=== PATIENT | female | born 1990 | race Caucasian/White ===

== ENCOUNTER 2021-03-12 07:10 | Inpatient (IN) ==
[2021-03-12] MEDS ORDERED: miSOPROStoL 50 MCG TAB PO ONE (09:34)
[2021-03-12] MEDS ORDERED: OXYTOCIN 30 UNITS/500 ML BAG IV PRN (09:34)
--- NOTE | 2021-03-12 09:42 | Obstetrical Progress Note ---
Date of Service March 12, 2021 Assessment & Plan (1) Prolonged gestation: Plan: Labor induction for prolonged gestation Met pt and spouse Reviewed labor induction plan and anticipation Reviewed PNC with pt FHR; CAT1 Ctx Minimal VE ; /-3 EFW By renetta; karely Cytotec #1 ordered Admission and Anticipated Discharge Date Admission Date: March 12, 2021 Results & Data ([facility]) Vital Signs (Past 12 Hours) Vital Signs Temp Pulse Resp BP 03/12/21 07:28 36.8 C 18 03/12/21 07:26 86 122/72
[2021-03-12 10:01] LABS: Hematocrit (blood only) 36.5 % (37-47); Hemoglobin 12.4 g/dL (12.0-16.0); Mean Corpuscular Hemoglobin 29.1 pg (25-34); Mean Corpuscular Volume 85.7 fL (80-100); Mean Platelet Volume 10.9 fL (7.4-10.4); Platelet Count 233 K/uL (130-400); RDW Coefficient of Variation 13.4 % (11.5-14.5); Red Blood Count 4.26 M/uL (4.2-5.4)
[2021-03-12] MEDS ORDERED: DINOPROSTONE 10 MG INSERT PV ONE (19:15)
--- NOTE | 2021-03-12 20:03 | Labor Progress Brief Note ---
Date of Service March 12, 2021 Assessment & Plan (1) Prolonged gestation: Plan: Pt doing well FHR; CAT1 Ctx mild and irregular VE /-3 Received one dose Cytotec Cervidil placed Admission and Anticipated Discharge Date Admission Date: March 12, 2021 Results & Data ([facility]) Vital Signs (Past 12 Hours) Vital Signs Temp Pulse Resp BP 03/12/21 19:04 36.7 C 70 18 117/61 03/12/21 19:03 36.7 C 18 03/12/21 15:12 36.8 C 68 20 112/63 03/12/21 12:38 36.6 C 18 03/12/21 12:30 63 102/58 L 03/12/21 11:39 72 104/58 L 03/12/21 11:38 37.2 C 18
[2021-03-13] MEDS ORDERED: DINOPROSTONE 10 MG INSERT PV ONE (09:06)
[2021-03-13] MEDS ORDERED: BUTORPHANOL TARTRATE 1 MG/ML VIAL IV PRN (09:09)
[2021-03-13] MEDS ORDERED: FLUCONAZOLE 50 MG TAB PO ONE (09:09)
--- NOTE | 2021-03-13 09:09 | Obstetrical Progress Note ---
Date of Service March 13, 2021 Assessment & Plan Admission and Anticipated Discharge Date Admission Date: March 12, 2021 Subjective Patient is seen and examined Reviewed her records and confirmed with her No medical problems No smoking/ alcohol or D use No h/o genital STD'S/ HSV GBS negative IOL for postdates since yesterday am, 1 dose of PO Cytotec and 1 cervidil ( removed at 07:45 am) Feels irregular mild contractions, not painful, able to sleep all night No LOF/VB +FM's FHR categ I VE; 1/ 40%/ -3, posterior, [place]ff[place] 3 Candidal d/c Discussed the findings and unfavorable cervix She agrees with cervical ripening with Cervidil Diflucan once Continue to monitor closely Results & Data ([facility]) Vital Signs (Past 12 Hours) Vital Signs Temp Pulse Resp BP 03/13/21 07:10 36.8 C 20 03/13/21 07:09 77 119/70 03/13/21 04:31 36.7 C 59 L 16 125/71 03/12/21 23:29 36.7 C 18 03/12/21 23:28 36.7 C 71 18 122/63 03/12/21 21:48 18 03/12/21 21:30 18
[2021-03-13] MEDS ORDERED: ACETAMINOPHEN 325 MG TAB PO PRN (09:10)
[2021-03-13] MEDS ORDERED: ONDANSETRON INJ 2 MG/ML 2 ML VIAL IV PRN (09:10)
[2021-03-13] MEDS: LACTATED RINGER'S 1,000 ML IV PRN ×2 (09:28→10:28)
--- NOTE | 2021-03-13 16:13 | Obstetrical Progress Note ---
Date of Service March 13, 2021 Assessment & Plan Admission and Anticipated Discharge Date Admission Date: March 12, 2021 Subjective Patient is reevaluated She feels about the same, mild irregular ctxs q 5-10 min No LOF/VB +FM's FHR categ I [place]: ctxs q 2-5 min, does not feel them all Discussed possible plan per VE this evening Encouraged to ambulate Continue to monitor Results & Data ([facility]) Vital Signs (Past 12 Hours) Vital Signs Temp Pulse Resp BP 03/13/21 15:45 36.8 C 18 03/13/21 15:35 70 117/75 03/13/21 11:30 37.0 C 03/13/21 11:23 75 117/76 03/13/21 07:10 36.8 C 20 03/13/21 07:09 77 119/70 03/13/21 04:31 36.7 C 59 L 16 125/71
--- NOTE | 2021-03-13 23:32 | Obstetrical Progress Note ---
Date of Service March 13, 2021 Assessment & Plan Admission and Anticipated Discharge Date Admission Date: March 12, 2021 Subjective Patient is reevaluated. Cervidil came out, she ate dinner and took a shower. She denies pain but still feeling mild irregular contractions. Vital signs stable afebrile, heart rate reassuring, Cervix is 1 to 2 cm dilated, 40% effaced, head at -3 station. Discussed next plan as fully bulb placement with low-dose Pitocin and patient agreed. Speculum was placed in the patient's vagina, cervix was visualized and cleaned with Betadine solution. Valencia catheter was inserted through the cervix and its balloon was inflated with 40 mL of sterile water and applied to the cervix with gentle traction. Continue to monitor closely. Results & Data ([facility] [place]) Vital Signs (Past 12 Hours) Vital Signs Temp Pulse Resp BP 03/13/21 19:40 77 112/59 L 03/13/21 19:15 36.8 C 20 03/13/21 18:27 68 120/72 03/13/21 15:45 36.8 C 18 03/13/21 15:35 70 117/75
[2021-03-14] MEDS: OXYTOCIN 30 UNITS/500 ML BAG IV PRN (00:01)
[2021-03-14] MEDS: LACTATED RINGER'S 1,000 ML IV PRN (06:15)
--- NOTE | 2021-03-14 07:13 | Anesthesiology Consultation ---
Date of Service March 14, 2021 Assessment & Plan ASA ASA2 Proposed Anesthesia Anesthesia Type: Labor Epidural Risk / Benefits Reviewed With: PT / POA / Parent / Guardian, Accepts Plan and Informed Consent Obtained History Height/Weight Height: 5 ft 4 in Weight: 87.09 kg Allergies Allergy/AdvReac Type Severity Reaction Status Date / Time amoxicillin Allergy Rash Verified 03/12/21 07:35 Medications Home Medications Medication Instructions Recorded Confirmed Last Taken iron,carbonyl 65 mg-vitamin C 125 1 tab PO BID 03/12/21 03/12/21 03/10/21 21:00 mg tablet,delayed release (Vitron-C) [id number] 1 mg 1 tab PO DAILY 03/12/21 03/12/21 03/10/21 21:00 tablet Active Medications Generic Name Dose Route Start Last Admin Trade Name Freq PRN Reason Stop Dose Admin Butorphanol Tartrate 1 mg 03/13/21 09:09 03/14/21 00:05 Butorphanol Tartrate 1 Mg/Ml Vial IV 04/12/21 09:08 1 mg Q3HWA PRN Administration Pain Lactated Ringer's 1,000 mls @ 125 mls/hr 03/12/21 09:34 03/14/21 06:15 Lr IV 03/14/21 09:33 125 mls/hr .Q8H PRN Administration L&D Protocol Protocol Oxytocin 30 units in 500 mls @ 3 mls/hr 03/13/21 23:34 03/14/21 06:15 Pitocin IV 03/15/21 23:33 0.18 units/hr .Q24H PRN 3 mls/hr Labor Induction/Augmentation Titration Protocol 0.18 UNITS/HR Past Medical History Medical History (Updated 03/12/21 @ 09:40 by Felix Patel MD) No significant past medical history Exercise / Class Metabolic Activity II 4-5 Yardwork/Stairs/Walk up hill Past Family History Family History (Updated 03/12/21 @ 07:32 by Vashti Martinez RN) Mother Heart disease Grandfather (Maternal) Diabetes Grandfather (Paternal) Diabetes Grandmother (Paternal) Diabetes Grandmother (Maternal) Diabetes Breast cancer Past Surgical History Surgical History (Updated 03/12/21 @ 07:30 by Vashti Martinez RN) No significant past surgical history Past Anesthesia History No Hx of Anesthesia Complications and No Family Hx of Anesthesia Complications History of PONV No Hx of PONV and No Hx of Motion Sickness Social History Smoking Status: Never smoker Hx Alcohol Use: No Hx Substance Use: No Review of Systems denies fever/cough/ colds/ chest pain/ SOB/ IBRAHIMA denies IBRAHIMA Physical Exam Vital Signs Last Vital Signs Temp 36.8 C 03/13/21 23:32 Pulse 71 03/14/21 07:06 Resp 18 03/14/21 06:30 BP 120/69 03/14/21 07:06 ENMT Mouth: no TMJ abnormality and no dentition abnormality Thyromental Distance: > or= 3.5 Finger Breadths Mallampati Class: II Neck neck extension not limited Respiratory normal respiratory effort; no respiratory distress Auscultation: lungs clear to auscultation bilaterally Cardiovascular Rate/Rhythm: regular rate and regular rhythm Neurologic moves all extremities Psychiatric Orientation: alert and oriented x 3 Testing Laboratory Results 03/12/21 09:50
--- NOTE | 2021-03-14 09:48 | Labor Progress Brief Note ---
Date of Service March 14, 2021 Subjective doing well 3rd day of induction pain level reported as 4 Valencia fell out of cervix Assessment & Plan Admission and Anticipated Discharge Date Admission Date: March 12, 2021 Physical Exam Genitourinary: OB Exam Abdomen: + heart tones and + vertex Manual OB Exam: + cervical dilation 3 cm, + cervical effacement 60%, + station high and + amniotic fluid clear and bloody OB Exam Monitor Tracing: + external FHT monitor used, + external uterine monitor used, + category I and + normal FHT variability AROM with blood tinged fluid Results & Data ([facility]) Vital Signs (Past 12 Hours) Vital Signs Temp Pulse Resp BP 03/14/21 09:36 70 110/67 03/14/21 09:06 65 110/66 03/14/21 08:36 67 111/71 03/14/21 08:07 71 113/67 03/14/21 07:36 75 116/67 03/14/21 07:06 71 120/69 03/14/21 07:00 36.8 C 20 03/14/21 06:36 74 112/70 03/14/21 06:30 18 03/14/21 06:06 73 110/68 03/14/21 05:36 62 115/61 03/14/21 05:06 68 108/64 03/14/21 04:36 74 109/69 03/14/21 04:05 76 111/73 03/13/21 23:32 36.8 C 77 18 123/71
[2021-03-14] MEDS: LACTATED RINGER'S 1,000 ML IV SCH ×3 (14:10→22:51)
--- NOTE | 2021-03-14 14:26 | Labor Progress Brief Note ---
Date of Service March 14, 2021 Assessment & Plan Admission and Anticipated Discharge Date Admission Date: March 12, 2021 Physical Exam Genitourinary: Manual OB Exam: + cervical dilation 4 cm, + cervical effacement 70% and 80% and + station -2 OB Exam Monitor Tracing: + external FHT monitor used, + external uterine monitor used, + category I and + normal FHT variability Results & Data ([facility]) Vital Signs (Past 12 Hours) Vital Signs Temp Pulse Resp BP 03/14/21 14:06 68 115/68 03/14/21 13:36 69 108/63 03/14/21 13:06 64 111/63 03/14/21 12:36 75 111/68 03/14/21 12:30 36.9 C 03/14/21 11:59 18 03/14/21 11:36 78 111/63 03/14/21 11:17 69 111/72 03/14/21 10:37 72 111/73 03/14/21 10:30 36.8 C 03/14/21 10:06 71 113/70 03/14/21 09:36 70 110/67 03/14/21 09:06 65 110/66 03/14/21 08:36 67 111/71 03/14/21 08:07 71 113/67 03/14/21 07:36 75 116/67 03/14/21 07:06 71 120/69 03/14/21 07:00 36.8 C 20 03/14/21 06:36 74 112/70 03/14/21 06:30 18 03/14/21 06:06 73 110/68 03/14/21 05:36 62 115/61 03/14/21 05:06 68 108/64 03/14/21 04:36 74 109/69 03/14/21 04:05 76 111/73
--- NOTE | 2021-03-14 19:41 | Labor Progress Brief Note ---
Date of Service March 14, 2021 Assessment & Plan Admission and Anticipated Discharge Date Admission Date: March 12, 2021 Physical Exam Genitourinary: Manual OB Exam: + cervical dilation 5 cm, + cervical effacement 80% and + station -2 OB Exam Monitor Tracing: + external FHT monitor used, + external uterine monitor used, + category I and + normal FHT variability Results & Data ([facility]) Vital Signs (Past 12 Hours) Vital Signs Temp Pulse Resp BP 03/14/21 19:36 85 110/67 03/14/21 19:06 82 116/69 03/14/21 19:05 36.8 C 20 03/14/21 18:36 67 122/78 03/14/21 18:06 76 126/74 03/14/21 17:36 66 116/72 03/14/21 17:06 71 117/77 03/14/21 16:59 36.8 C 18 03/14/21 16:36 74 113/69 03/14/21 16:06 67 115/64 03/14/21 15:36 73 113/68 03/14/21 15:07 75 111/66 03/14/21 15:01 36.7 C 18 03/14/21 14:36 71 104/67 03/14/21 14:06 68 115/68 03/14/21 13:36 69 108/63 03/14/21 13:06 64 111/63 03/14/21 12:36 75 111/68 03/14/21 12:30 36.9 C 03/14/21 11:59 18 03/14/21 11:36 78 111/63 03/14/21 11:17 69 111/72 03/14/21 10:37 72 111/73 03/14/21 10:30 36.8 C 03/14/21 10:06 71 113/70 03/14/21 09:36 70 110/67 03/14/21 09:06 65 110/66 03/14/21 08:36 67 111/71 03/14/21 08:07 71 113/67
[2021-03-14] MEDS ORDERED: ePHEDrine sulfate 50 MG/ML AMP ONE (22:07)
[2021-03-14] MEDS ORDERED: fentaNYL 2MCG/ML ROPIVACAINE 1.25MG/ML 100 ML BAG EPI ONE (22:08)
[2021-03-14] MEDS ORDERED: BUPIVACAINE 0.25% 30 ML VIAL ONE (22:08)
[2021-03-14] MEDS ORDERED: fentaNYL citrate 100 MCG/2 ML VIAL ONE (22:08)
[2021-03-14] MEDS ORDERED: SODIUM CHLORIDE 0.9% INJ 10 ML VIAL ONE (22:08)
[2021-03-14] MEDS ORDERED: fentaNYL 2MCG/ML ROPIVACAINE 1.25MG/ML 100 ML BAG EPI PRN (22:18)
[2021-03-14] MEDS ORDERED: diphenhydrAMINE 50 MG/ML VIAL IV PRN (22:18)
[2021-03-14] MEDS ORDERED: ePHEDrine sulfate 50 MG/ML AMP IV PRN (22:18)
[2021-03-14] MEDS ORDERED: NALOXONE HCL 1 MG in SODIUM CHLORIDE 0.9% 1000ML 1,000 ML IV PRN (22:18)
[2021-03-14] MEDS ORDERED: NALBUPHINE HCL INJ 10 MG/ML AMP IV PRN (22:18)
[2021-03-14] MEDS ORDERED: NALOXONE HCL 0.4 MG/1 ML VIAL/CARP IV PRN (22:18)
--- NOTE | 2021-03-14 22:18 | Anesthesiology Consultation ---
Date of Service March 14, 2021 Assessment & Plan (1) Encounter for pre-operative examination: Chart Review Chart Review: Acceptable Risk for Surgery and Patient NOT seen in Pre Admission Testing Consults Requested none History Height/Weight Height: 5 ft 4 in Weight: 87.09 kg Allergies Allergy/AdvReac Type Severity Reaction Status Date / Time amoxicillin Allergy Rash Verified 03/12/21 07:35 Medications Home Medications Medication Instructions Recorded Confirmed Last Taken iron,carbonyl 65 mg-vitamin C 125 1 tab PO BID 03/12/21 03/12/21 03/10/21 21:00 mg tablet,delayed release (Vitron-C) [id number] 1 mg 1 tab PO DAILY 03/12/21 03/12/21 03/10/21 21:00 tablet Active Medications Generic Name Dose Route Start Last Admin Trade Name Freq PRN Reason Stop Dose Admin Butorphanol Tartrate 1 mg 03/13/21 09:09 03/14/21 00:05 Butorphanol Tartrate 1 Mg/Ml Vial IV 04/12/21 09:08 1 mg Q3HWA PRN Administration Pain Oxytocin 30 units in 500 mls @ 15 mls/hr 03/13/21 23:34 03/14/21 22:15 Pitocin IV 03/15/21 23:33 0.96 units/hr .Q24H PRN 16 mls/hr Labor Induction/Augmentation Titration Protocol 0.9 UNITS/HR Lactated Ringer's 1,000 mls @ 125 mls/hr 03/14/21 10:00 03/14/21 22:05 Lr IV 04/13/21 09:59 999 mls/hr .Q8H ALYCE Infusion Past Medical History Medical History No significant past medical history Past Family History Family History Mother Heart disease Grandfather (Maternal) Diabetes Grandfather (Paternal) Diabetes Grandmother (Paternal) Diabetes Grandmother (Maternal) Diabetes Breast cancer Past Surgical History Surgical History No significant past surgical history Social History Smoking Status: Never smoker Hx Alcohol Use: No Hx Substance Use: No Physical Exam Vital Signs Last Vital Signs Temp 98.2 F 03/14/21 22:02 Pulse 75 03/14/21 21:37 Resp 20 03/14/21 19:05 BP 114/69 03/14/21 21:37 Testing Laboratory Results 03/12/21 09:50
[2021-03-15] MEDS: LACTATED RINGER'S 1,000 ML IV SCH ×2 (02:52→06:01)
[2021-03-15] MEDS: OXYTOCIN 30 UNITS/500 ML BAG IV PRN (03:30)
[2021-03-15 07:34] LABS: Basophils # (auto) 0.01 K/uL (0-0.2); Hematocrit (blood only) 36.8 % (37-47); Hemoglobin 12.6 g/dL (12.0-16.0); Immature Granulocytes # (auto) 0.04 K/uL (0.00-0.02); Immature Granulocytes % (auto) 0.2 %; Lymphocytes # (auto) 0.69 K/uL (1.2-3.4); Lymphocytes % (auto) 3.3 %; Mean Corpuscular Hgb Conc 34.2 g/dL (32-36); Mean Corpuscular Volume 84.6 fL (80-100); Mean Platelet Volume 10.8 fL (7.4-10.4); Monocytes # (auto) 1.18 K/uL (0.11-0.59); Monocytes % (auto) 5.7 %; Neutrophils # (auto) 18.81 K/uL (1.4-6.5); Neutrophils % (auto) 90.8 %; Platelet Count 202 K/uL (130-400); RDW Coefficient of Variation 13.5 % (11.5-14.5); RDW Standard Deviation 41.9 fL (36.4-46.3); Red Blood Count 4.35 M/uL (4.2-5.4); White Blood Count 20.73 K/uL (4.8-10.8)
[2021-03-15] MEDS ORDERED: LACTATED RINGER'S 1,000 ML IV SCH ×2 (07:45→08:45)
--- NOTE | 2021-03-15 07:45 | Obstetrical Progress Note ---
Date of Service March 15, 2021 Assessment & Plan Admission and Anticipated Discharge Date Admission Date: March 12, 2021 Subjective Patient is seen and examined I got sign out from Dr Flores who AROM'ed at 09:45 am yesterday morning and increased pitocin per protocol. Per his exam last night and her nurse at 2 am cervix was 5 cm/ 80%/ -2 Patient c/o back pain, no pain from contractions, received epidural yesterday around 11 am FHR had been categ I but now tachycardic 165-170's, no decels, Catet II strip VE; swollen labia BL, cervix 4 cm/ 60%, swollen, head coned and -2 station Discussed the findings as arrest of dilatation at active stage of labor, tachycardia and recommended imminent delivery via Ceserean section Patient agrees Understands it is a major surgery with risks of bleeding, infection, injury to surrounding organs like bowels, bladder, ureters, increased risk of DVD/ PE, scarring, adhesion. She signed and informed consent Vagina was washed with betadine Will repeat labs, start preop AB's with Cefazolin and Azitromycin and proceed with Csection L&D team and peds aware. Results & Data ([facility]) Vital Signs (Past 12 Hours) Vital Signs Temp Pulse Resp BP Pulse Ox 03/15/21 07:34 97 H 98 03/15/21 07:32 96 H 134/68 03/15/21 07:29 103 H 99 03/15/21 07:24 104 H 97 03/15/21 07:22 103 H 92 03/15/21 07:19 105 H 97 03/15/21 07:16 98 H 127/75 03/15/21 07:14 90 95 03/15/21 07:13 91 H 93 03/15/21 07:09 92 H 96 03/15/21 07:04 111 H 99 03/15/21 07:02 111 H 140/78 03/15/21 07:00 37.2 C 20 03/15/21 06:59 102 H 18 96 03/15/21 06:54 110 H 97 03/15/21 06:49 110 H 100 03/15/21 06:46 91 H 113/63 03/15/21 06:44 96 H 99 03/15/21 06:39 97 H 98 03/15/21 06:34 86 99 03/15/21 06:32 83 123/71 03/15/21 06:30 18 03/15/21 06:29 89 97 03/15/21 06:24 80 97 03/15/21 06:19 83 97 03/15/21 06:17 76 123/70 03/15/21 06:14 77 98 03/15/21 06:09 81 97 03/15/21 06:04 75 99 03/15/21 06:01 83 120/63 03/15/21 06:00 18 03/15/21 05:59 86 98 03/15/21 05:54 77 98 03/15/21 05:49 79 99 03/15/21 05:46 80 118/68 03/15/21 05:44 80 97 03/15/21 05:39 81 97 03/15/21 05:34 89 96 03/15/21 05:31 81 122/70 03/15/21 05:30 18 03/15/21 05:29 75 95 03/15/21 05:24 82 97 03/15/21 05:19 101 H 96 03/15/21 05:16 105 H 121/73 03/15/21 05:14 107 H 95 03/15/21 05:13 101 H 94 03/15/21 05:09 118 H 97 03/15/21 05:04 97 H 97 03/15/21 05:01 71 125/68 03/15/21 05:00 37.2 C 18 03/15/21 04:59 76 97 03/15/21 04:54 73 96 03/15/21 04:49 74 97 03/15/21 04:46 71 118/68 03/15/21 04:44 69 97 03/15/21 04:39 71 97 03/15/21 04:37 77 92 03/15/21 04:34 73 97 03/15/21 04:31 75 126/70 03/15/21 04:30 16 03/15/21 04:29 73 98 03/15/21 04:24 75 98 03/15/21 04:19 90 97 03/15/21 04:16 87 123/68 03/15/21 04:14 85 98 03/15/21 04:09 92 H 98 03/15/21 04:08 96 H 94 03/15/21 04:04 70 96 03/15/21 04:02 75 118/66 03/15/21 04:00 18 03/15/21 03:59 74 97 03/15/21 03:54 74 96 03/15/21 03:49 74 95 03/15/21 03:47 76 120/67 03/15/21 03:44 72 95 03/15/21 03:39 72 95 03/15/21 03:34 73 95 03/15/21 03:32 81 122/67 03/15/21 03:30 18 03/15/21 03:29 76 96 03/15/21 03:26 74 94 03/15/21 03:24 78 96 03/15/21 03:20 75 94 03/15/21 03:19 83 93 03/15/21 03:16 72 118/67 03/15/21 03:14 79 94 03/15/21 03:09 76 94 03/15/21 03:08 75 94 03/15/21 03:04 75 96 03/15/21 03:01 74 120/68 03/15/21 03:00 16 03/15/21 02:59 74 96 03/15/21 02:54 77 96 03/15/21 02:49 75 96 03/15/21 02:47 71 123/70 03/15/21 02:44 71 97 03/15/21 02:39 72 97 03/15/21 02:34 81 99 03/15/21 02:31 75 126/74 03/15/21 02:29 81 99 03/15/21 02:24 72 99 03/15/21 02:19 74 99 03/15/21 02:16 82 117/74 03/15/21 02:14 82 100 03/15/21 02:10 37.1 C 03/15/21 02:09 89 99 03/15/21 02:04 66 97 03/15/21 02:02 74 119/69 03/15/21 02:00 18 03/15/21 01:59 72 98 03/15/21 01:54 62 96 03/15/21 01:49 64 95 03/15/21 01:46 65 116/65 03/15/21 01:44 67 95 03/15/21 01:39 66 95 03/15/21 01:34 66 95 03/15/21 01:32 64 114/63 94 03/15/21 01:30 18 03/15/21 01:29 66 95 03/15/21 01:26 68 94 03/15/21 01:24 64 95 03/15/21 01:20 66 94 03/15/21 01:19 67 95 03/15/21 01:17 70 114/66 03/15/21 01:14 64 95 03/15/21 01:12 63 94 03/15/21 01:09 66 95 03/15/21 01:04 62 95 03/15/21 01:01 61 109/61 03/15/21 01:00 16 03/15/21 00:59 64 95 03/15/21 00:54 68 94 03/15/21 00:52 67 93 03/15/21 00:49 65 95 03/15/21 00:47 66 111/63 03/15/21 00:46 66 94 03/15/21 00:44 68 96 03/15/21 00:39 70 96 03/15/21 00:37 36.5 C 03/15/21 00:34 87 95 03/15/21 00:31 70 89/54 L 03/15/21 00:30 18 03/15/21 00:29 67 96 03/15/21 00:24 73 96 03/15/21 00:19 71 96 03/15/21 00:16 71 87/51 L 03/15/21 00:14 71 96 03/15/21 00:09 73 95 03/15/21 00:04 70 95 03/15/21 00:02 72 93/50 L 03/15/21 00:00 18 03/14/21 23:59 74 96 03/14/21 23:54 77 97 03/14/21 23:49 72 96 03/14/21 23:47 70 91/52 L 03/14/21 23:44 69 96 03/14/21 23:39 76 97 03/14/21 23:34 70 96 03/14/21 23:31 68 96/52 L 03/14/21 23:30 18 03/14/21 23:29 73 96 03/14/21 23:24 78 97 03/14/21 23:19 74 97 03/14/21 23:16 68 93/51 L 03/14/21 23:15 18 03/14/21 23:14 84 97 03/14/21 23:10 74 20 100/57 L 03/14/21 23:09 74 97 03/14/21 23:05 75 18 96/55 L 03/14/21 23:04 81 98 03/14/21 23:00 37.0 C 76 18 99/56 L 03/14/21 22:59 77 98 03/14/21 22:55 18 03/14/21 22:54 76 97/56 L 97 03/14/21 22:52 80 100/57 L 03/14/21 22:50 87 18 99/53 L 03/14/21 22:49 75 101/53 L 98 03/14/21 22:45 18 03/14/21 22:44 102 H 119/70 98 03/14/21 22:42 78 121/72 03/14/21 22:40 78 18 121/75 03/14/21 22:39 88 98 03/14/21 22:37 83 121/74 03/14/21 22:34 78 98 03/14/21 22:29 89 98 03/14/21 22:24 75 99 03/14/21 22:19 87 99 03/14/21 22:02 36.8 C 03/14/21 21:37 75 114/69 03/14/21 20:36 73 125/71 03/14/21 20:34 36.7 C 03/14/21 20:06 75 104/57 L
[2021-03-15] MEDS ORDERED: CITRIC ACID/SODIUM CITRATE 15 ML UDC ONE (07:49)
--- NOTE | 2021-03-15 07:49 | Communication Note ---
Date of Service: March 15, 2021 Arrest of labor. Patient very comfortable with epidural. Will plan for surgical dosing of labor epidural. Epidural narcotics at conclusion of case.
[2021-03-15] MEDS ORDERED: AZITHROMYCIN 500 MG in DEXTROSE 5% 250 ML IV SCH (08:00)
[2021-03-15] MEDS ORDERED: ceFAZolin 2000MG 2,000 MG/15 ML SYR IV SCH (08:00)
[2021-03-15] MEDS ORDERED: CITRIC ACID/SODIUM CITRATE 15 ML UDC PO SCH (08:00)
--- NOTE | 2021-03-15 08:07 | History & Physical Report ---
Date of Service March 15, 2021 Assessment & Plan (1) Post-term , 40-42 weeks of gestation: Plan: 30 yo at 41.1 wks, IOL since 03/12, day 4 with no progress Arrest of dilation Categ II strip with tachycardia Proceed with section Understands the risks and signed an informed consent (2) Failed induction of labor, antepartum: (3) tachycardia: Admission and Anticipated Discharge Date Admission Date: March 12, 2021 History of Present Illness Primary Care Provider: NO PCP Patient is a 30 yo at 41.1 wks, IOL since 03/12 for postdates Received cervical ripening agents, Pitocin, AROM'ed Day 4 of admission with no cervical chage Arrest of dilation at active stage of labor, categ II strip see my prior note for details Allergies Allergy/AdvReac Type Severity Reaction Status Date / Time amoxicillin Allergy Rash Verified 03/12/21 07:35 Home Medications Medication Instructions Recorded Confirmed Type iron,carbonyl 65 mg-vitamin C 125 1 tab PO BID 03/12/21 03/12/21 History mg tablet,delayed release (Vitron-C) [id number] 1 mg 1 tab PO DAILY 03/12/21 03/12/21 History tablet Patient History Medical History No significant past medical history Surgical History No significant past surgical history Family History Mother Heart disease Grandfather (Maternal) Diabetes Grandfather (Paternal) Diabetes Grandmother (Paternal) Diabetes Grandmother (Maternal) Diabetes Breast cancer Social History Smoking Status: Never smoker Second Hand Exposure: No; Hx Alcohol Use: No Hx Substance Use: No Preferred Language: Jordanian Communication Ability: Effective Visual Impairment: No Limitations Hearing Ability: Normal Rush Seater Required: No Beliefs That Will Affect Care: None marital status: marital status details: Ricky Reynoldskey Current Living Situation: Spouse Current Living Situation Comment: lives with current occupational status: employed 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 Other Information That Helps Us Care for You: No Feels Safe at Home: Yes Safety Concerns: Feels Safe At This Time Gender Identity: Female Assistive Devices: None 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 No h/o STD's Review of Systems as per Subjective / HPI Physical Exam Constitutional: well developed and well nourished Gastrointestinal (Abdomen): Inspection/Auscultation: abdomen normal to inspection and + abdomen distended (gravid) Genitourinary: normal external appearance (swollen labia) OB Exam Abdomen: + vertex Manual OB Exam: + cervical dilation 4 cm, + cervical effacement 60%, + station -2 (cones head) and + amniotic fluid (meconium) OB Exam Monitor Tracing: + external uterine monitor used and + category II Results & Data ([facility]) Vital Signs (Past 12 Hours) Vital Signs Temp Pulse Resp BP Pulse Ox 03/15/21 07:59 92 H 97 03/15/21 07:54 97 H 98 03/15/21 07:49 92 H 97 03/15/21 07:46 99 H 129/78 03/15/21 07:44 106 H 98 03/15/21 07:39 96 H 98 03/15/21 07:34 97 H 98 03/15/21 07:32 96 H 134/68 03/15/21 07:29 103 H 99 03/15/21 07:24 104 H 97 03/15/21 07:22 103 H 92 03/15/21 07:19 105 H 97 03/15/21 07:16 98 H 127/75 03/15/21 07:14 90 95 03/15/21 07:13 91 H 93 03/15/21 07:09 92 H 96 03/15/21 07:04 111 H 99 03/15/21 07:02 111 H 140/78 03/15/21 07:00 37.2 C 20 03/15/21 06:59 102 H 18 96 03/15/21 06:54 110 H 97 03/15/21 06:49 110 H 100 03/15/21 06:46 91 H 113/63 03/15/21 06:44 96 H 99 03/15/21 06:39 97 H 98 03/15/21 06:34 86 99 03/15/21 06:32 83 123/71 03/15/21 06:30 18 03/15/21 06:29 89 97 03/15/21 06:24 80 97 03/15/21 06:19 83 97 03/15/21 06:17 76 123/70 03/15/21 06:14 77 98 03/15/21 06:09 81 97 03/15/21 06:04 75 99 03/15/21 06:01 83 120/63 03/15/21 06:00 18 03/15/21 05:59 86 98 03/15/21 05:54 77 98 03/15/21 05:49 79 99 03/15/21 05:46 80 118/68 03/15/21 05:44 80 97 03/15/21 05:39 81 97 03/15/21 05:34 89 96 03/15/21 05:31 81 122/70 03/15/21 05:30 18 03/15/21 05:29 75 95 03/15/21 05:24 82 97 03/15/21 05:19 101 H 96 03/15/21 05:16 105 H 121/73 03/15/21 05:14 107 H 95 03/15/21 05:13 101 H 94 03/15/21 05:09 118 H 97 03/15/21 05:04 97 H 97 03/15/21 05:01 71 125/68 03/15/21 05:00 37.2 C 18 03/15/21 04:59 76 97 03/15/21 04:54 73 96 03/15/21 04:49 74 97 03/15/21 04:46 71 118/68 03/15/21 04:44 69 97 03/15/21 04:39 71 97 03/15/21 04:37 77 92 03/15/21 04:34 73 97 03/15/21 04:31 75 126/70 03/15/21 04:30 16 03/15/21 04:29 73 98 03/15/21 04:24 75 98 03/15/21 04:19 90 97 03/15/21 04:16 87 123/68 03/15/21 04:14 85 98 03/15/21 04:09 92 H 98 03/15/21 04:08 96 H 94 03/15/21 04:04 70 96 03/15/21 04:02 75 118/66 03/15/21 04:00 18 03/15/21 03:59 74 97 03/15/21 03:54 74 96 03/15/21 03:49 74 95 03/15/21 03:47 76 120/67 03/15/21 03:44 72 95 03/15/21 03:39 72 95 03/15/21 03:34 73 95 03/15/21 03:32 81 122/67 03/15/21 03:30 18 03/15/21 03:29 76 96 03/15/21 03:26 74 94 03/15/21 03:24 78 96 03/15/21 03:20 75 94 03/15/21 03:19 83 93 03/15/21 03:16 72 118/67 03/15/21 03:14 79 94 03/15/21 03:09 76 94 03/15/21 03:08 75 94 03/15/21 03:04 75 96 03/15/21 03:01 74 120/68 03/15/21 03:00 16 03/15/21 02:59 74 96 03/15/21 02:54 77 96 03/15/21 02:49 75 96 03/15/21 02:47 71 123/70 03/15/21 02:44 71 97 03/15/21 02:39 72 97 03/15/21 02:34 81 99 03/15/21 02:31 75 126/74 03/15/21 02:29 81 99 03/15/21 02:24 72 99 03/15/21 02:19 74 99 03/15/21 02:16 82 117/74 03/15/21 02:14 82 100 03/15/21 02:10 37.1 C 03/15/21 02:09 89 99 03/15/21 02:04 66 97 03/15/21 02:02 74 119/69 03/15/21 02:00 18 03/15/21 01:59 72 98 03/15/21 01:54 62 96 03/15/21 01:49 64 95 03/15/21 01:46 65 116/65 03/15/21 01:44 67 95 03/15/21 01:39 66 95 03/15/21 01:34 66 95 03/15/21 01:32 64 114/63 94 03/15/21 01:30 18 03/15/21 01:29 66 95 03/15/21 01:26 68 94 03/15/21 01:24 64 95 03/15/21 01:20 66 94 03/15/21 01:19 67 95 03/15/21 01:17 70 114/66 03/15/21 01:14 64 95 03/15/21 01:12 63 94 03/15/21 01:09 66 95 03/15/21 01:04 62 95 03/15/21 01:01 61 109/61 03/15/21 01:00 16 03/15/21 00:59 64 95 03/15/21 00:54 68 94 03/15/21 00:52 67 93 03/15/21 00:49 65 95 03/15/21 00:47 66 111/63 03/15/21 00:46 66 94 03/15/21 00:44 68 96 03/15/21 00:39 70 96 03/15/21 00:37 36.5 C 03/15/21 00:34 87 95 03/15/21 00:31 70 89/54 L 03/15/21 00:30 18 03/15/21 00:29 67 96 03/15/21 00:24 73 96 03/15/21 00:19 71 96 03/15/21 00:16 71 87/51 L 03/15/21 00:14 71 96 03/15/21 00:09 73 95 03/15/21 00:04 70 95 03/15/21 00:02 72 93/50 L 03/15/21 00:00 18 03/14/21 23:59 74 96 03/14/21 23:54 77 97 03/14/21 23:49 72 96 03/14/21 23:47 70 91/52 L 03/14/21 23:44 69 96 03/14/21 23:39 76 97 03/14/21 23:34 70 96 03/14/21 23:31 68 96/52 L 03/14/21 23:30 18 03/14/21 23:29 73 96 03/14/21 23:24 78 97 03/14/21 23:19 74 97 03/14/21 23:16 68 93/51 L 03/14/21 23:15 18 03/14/21 23:14 84 97 03/14/21 23:10 74 20 100/57 L 03/14/21 23:09 74 97 03/14/21 23:05 75 18 96/55 L 03/14/21 23:04 81 98 03/14/21 23:00 37.0 C 76 18 99/56 L 03/14/21 22:59 77 98 03/14/21 22:55 18 03/14/21 22:54 76 97/56 L 97 03/14/21 22:52 80 100/57 L 03/14/21 22:50 87 18 99/53 L 03/14/21 22:49 75 101/53 L 98 03/14/21 22:45 18 03/14/21 22:44 102 H 119/70 98 03/14/21 22:42 78 121/72 03/14/21 22:40 78 18 121/75 03/14/21 22:39 88 98 03/14/21 22:37 83 121/74 03/14/21 22:34 78 98 03/14/21 22:29 89 98 03/14/21 22:24 75 99 03/14/21 22:19 87 99 03/14/21 22:02 36.8 C 03/14/21 21:37 75 114/69 03/14/21 20:36 73 125/71 03/14/21 20:34 36.7 C 03/14/21 20:06 75 104/57 L Laboratory Results Lab Results 03/12/21 03/12/21 03/12/21 Range/Units 09:50 10:02 10:02 WBC 12.00 H (4.8-10.8) K/uL RBC 4.26 (4.2-5.4) M/uL Hgb 12.4 (12.0-16.0) g/dL Hct 36.5 L (37-47) % MCV 85.7 (80-100) fL MCH 29.1 (25-34) pg MCHC 34.0 (32-36) g/dL RDW Std Deviation 42.0 (36.4-46.3) fL RDW Coeff of Lolita 13.4 (11.5-14.5) % Plt Count 233 (130-400) K/uL MPV 10.9 H (7.4-10.4) fL Immature Gran % (Auto) % Neut % (Auto) % Lymph % (Auto) % Bent % (Auto) % Eos % (Auto) % Baso % (Auto) % Neut # (Auto) (1.4-6.5) K/uL Lymph # (Auto) (1.2-3.4) K/uL Bent # (Auto) (0.11-0.59) K/uL Eos # (Auto) (0-0.5) K/uL Baso # (Auto) (0-0.2) K/uL Immature Gran # (Auto) (0.00-0.02) K/uL COVID-19 Eval [facility] SARS-CoV-2, RNA, NAAT NEGATIVE (NEGATIVE) 03/15/21 Range/Units 07:26 WBC 20.73 H (4.8-10.8) K/uL RBC 4.35 (4.2-5.4) M/uL Hgb 12.6 (12.0-16.0) g/dL Hct 36.8 L (37-47) % MCV 84.6 (80-100) fL MCH 29.0 (25-34) pg MCHC 34.2 (32-36) g/dL RDW Std Deviation 41.9 (36.4-46.3) fL RDW Coeff of Lolita 13.5 (11.5-14.5) % Plt Count 202 (130-400) K/uL MPV 10.8 H (7.4-10.4) fL Immature Gran % (Auto) 0.2 % Neut % (Auto) 90.8 % Lymph % (Auto) 3.3 % Bent % (Auto) 5.7 % Eos % (Auto) 0.0 % Baso % (Auto) 0.0 % Neut # (Auto) 18.81 H (1.4-6.5) K/uL Lymph # (Auto) 0.69 L (1.2-3.4) K/uL Bent # (Auto) 1.18 H (0.11-0.59) K/uL Eos # (Auto) 0.00 (0-0.5) K/uL Baso # (Auto) 0.01 (0-0.2) K/uL Immature Gran # (Auto) 0.04 H (0.00-0.02) K/uL COVID-19 Eval Order SARS-CoV-2, RNA, NAAT (NEGATIVE) Code Status & VTE Plan VTE Prophylaxis Plan VTE Prophylaxis will be ordered: No
[2021-03-15] MEDS ORDERED: LIDOCAINE 2%/EPINEPHRINE 1:200,000 20 ML SDV ONE (08:25)
[2021-03-15] MEDS ORDERED: OXYTOCIN 10 UNITS/ML VIAL ONE (08:42)
[2021-03-15] MEDS ORDERED: MoRPHine SULFATE PF 1 MG/ML 10 ML AMP/VIAL ONE (08:42)
[2021-03-15] MEDS ORDERED: ONDANSETRON INJ 2 MG/ML 2 ML VIAL ONE (08:42)
[2021-03-15] MEDS ORDERED: KETOROLAC 30 MG/ML VIAL ONE (08:42)
[2021-03-15] MEDS ORDERED: MoRPHine SULFATE 2 MG/ML CARP IV PRN (08:59)
[2021-03-15] MEDS ORDERED: MoRPHine SULFATE PF 1 MG/ML 10 ML AMP/VIAL INT SPINAL ONE (08:59)
[2021-03-15] MEDS ORDERED: ONDANSETRON INJ 2 MG/ML 2 ML VIAL IV PRN (08:59)
[2021-03-15] MEDS ORDERED: HYDROmorphone INJ 0.5 MG/0.5 ML SYR IV PRN (08:59)
[2021-03-15] MEDS ORDERED: NALOXONE HCL 0.08 MG in SYRINGE 1.8 ML IV PRN (08:59)
[2021-03-15] MEDS ORDERED: NALOXONE HCL 1 MG in SODIUM CHLORIDE 0.9% 1000ML 1,000 ML IV PRN (08:59)
[2021-03-15] MEDS ORDERED: PROMETHAZINE HCL 6.25 MG in SODIUM CHLORIDE 0.9% 50 ML IV PRN (08:59)
[2021-03-15] MEDS ORDERED: MEPERIDINE HCL 25 MG/ML CARP/VIAL IV PRN (08:59)
[2021-03-15] MEDS ORDERED: NALOXONE HCL 0.4 MG/1 ML VIAL/CARP IV PRN (08:59)
[2021-03-15] MEDS ORDERED: KETOROLAC 30 MG/ML VIAL IV PRN (08:59)
[2021-03-15] MEDS ORDERED: NALBUPHINE HCL INJ 10 MG/ML AMP IV PRN (08:59)
[2021-03-15] MEDS ORDERED: ePHEDrine sulfate 50 MG/ML AMP IV PRN (08:59)
[2021-03-15] MEDS ORDERED: LACTATED RINGER'S 500 ML IV PRN (08:59)
[2021-03-15] MEDS ORDERED: diphenhydrAMINE 50 MG/ML VIAL IV PRN (08:59)
[2021-03-15] MEDS ORDERED: DC INTRASPINAL MORPHINE SCH (09:00)
[2021-03-15] MEDS ORDERED: SODIUM CHLORIDE 0.9% 1000ML 1,000 ML IV SCH ×2 (09:00→20:00)
[2021-03-15] MEDS ORDERED: METHYLERGONOVINE MALEATE 0.2 MG/ML AMP ONE (09:00)
[2021-03-15] MEDS ORDERED: NO NARCOTICS OR SEDATIVES SCH (09:00)
[2021-03-15] MEDS ORDERED: BENZOCAINE 20% AER SPR 82.5 GM CAN EXT PRN (09:26)
[2021-03-15] MEDS ORDERED: SUPERCREAM 0.870% 15 GM JAR EXT PRN (09:26)
[2021-03-15] MEDS ORDERED: HYDROCORTISONE ACETATE 25 MG SUPP PR PRN (09:26)
[2021-03-15] MEDS ORDERED: SENNA 8.6 MG TAB PO PRN (09:26)
[2021-03-15] MEDS ORDERED: MAGNESIUM HYDROXIDE SUSP 30 ML UDC PO PRN (09:26)
[2021-03-15] MEDS ORDERED: OXYTOCIN 30 UNITS in D5W AND LACTATED RINGERS 1,000 ML IV SCH (10:00)
--- NOTE | 2021-03-15 10:05 | Post Operative Brief Note ---
Immediate Post Op Note v1 Date of Surgery March 15, 2021 Pre & Post Diagnosis Operation Date: 03/15/21 07:50 Pre-Op Diagnosis: 1. Arrest of Dilation 2. Chorioamnionitis 3. Category II FHR Tracing Post-Op Diagnosis: Same I identified the patient and participated in the time-out.: Yes Procedure Operation Date: 03/15/21 07:50 Actual Procedures p Section in LD; LD OR #3, Primary Lower Uterine Transverse Section for the of a viable girl at 0844.(Bilateral) - Rigoberto Posey MD Surgeon Rigoberto Johnson MD Machine Grainer Vashti PATEL Estimated Blood Loss 500 Findings Consistent with Post-Op Diagnosis Drains Valencia Catheter Anesthesia Type Labor Epidural Complications none Disposition Accompanied Patient To Recovery: Yes
[2021-03-15] MEDS ORDERED: SODIUM CHLORIDE 0.9% 250 ML IV PRN (10:08)
[2021-03-15] MEDS: CLINDAMYCIN 900 MG in DEXTROSE 5% 50 ML IV SCH ×2 (10:22→18:17)
[2021-03-15] MEDS: METHYLERGONOVINE MALEATE 0.2 MG TAB PO SCH ×4 (11:47→21:01)
--- NOTE | 2021-03-15 12:20 | Operative Report (OR) ---
DATE OF SURGERY: 03/15/2021 PREOPERATIVE DIAGNOSES: The patient is a 30-year-old 1, para 0, at 41 weeks and 1 day gestation, induction of labor for postdates since 03/12, arrest of dilatation in active stage of labor, category 2 heart rate tracing, suspected intra-amniotic infection. POSTOPERATIVE DIAGNOSES: The patient is a 30-year-old 1, para 0, at 41 weeks and 1 day gestation, induction of labor for postdates since 03/12, arrest of dilatation in active stage of labor, category 2 heart rate tracing, suspected intra-amniotic infection. PROCEDURE: Primary low transverse with Pfannenstiel skin incision. SURGEON: Rigoberto Johnson MD. RESIDENTIAL REAL ESTATE SALES MANAGER: Vashti Alvarez RN. ESTIMATED BLOOD LOSS: 500 mL. DRAINS: Valencia catheter drained 250 mL of clear urine. ANESTHESIA: Labor epidural. ANESTHESIOLOGIST: Dr. Kaye. COMPLICATIONS: None. FINDINGS: Baby was a viable female delivered in cephalic presentation at 8:44 a.m. Apgars were 8/9, weight was 3818 grams. Maternal findings; meconium- stained fluid in the uterine cavity. Normal uterus, fallopian tubes, and ovaries. DESCRIPTION OF PROCEDURE: The patient was taken to the operating room where epidural anesthesia was found to be adequate. She already had a Valencia catheter in labor and delivery. She was placed in dorsal supine position with a leftward tilt and prepared and draped in the usual sterile fashion, A Pfannenstiel skin incision was made and carried through to the underlying layer of fascia with the Bovie. Fascia was incised in the midline and incision was extended laterally with the help of Tavares scissors. Upper aspect of the fascial incision was grasped with 2 Javed clamps, elevated and underlying rectus muscles were dissected off sharply with Tavares scissors and bluntly with fingers. Lower aspect of the fascial incision was then grasped with 2 Javed clamps, elevated and underlying rectus muscles were dissected off sharply with Tavares scissors. Rectus muscles were in the midline. Peritoneum was entered bluntly with fingers. Peritoneal incision was extended superiorly and inferiorly with good visualization of the bladder. Bladder blade was inserted. In the anterior cul-de-sac around the lower uterine segment, there was noted to be a clear fluid. The vesicouterine peritoneum was identified, grasped with pickups, entered sharply with Metzenbaum scissors. Bladder flap was created digitally and bladder blade was reinserted. Lower uterine segment was incised in a transverse fashion. Incision was extended laterally with the help of fingers. Membranes were ruptured and dark meconium fluid was obtained. Afould odor was noted. Baby's head was delivered without difficulty. Shoulders were delivered with minimal traction. Baby was vigorously moving and crying. Mouth and nose were suctioned and the she was dried. Cord was clamped x2 and cut at 1 minute delay. Baby was handed to the waiting pediatric team and placenta was delivered manually as intact and complete. Uterus was exteriorized and cleared of all clots and debris. Uterine cavity was stained with green/ yellow color. Uterine cavity was irrigated with warm normal saline and suctioned multiple times until it became clear, and the uterine incision was repaired with 0 Vicryl in a running locked fashion and the second imbricating layer was placed with 0 Vicryl in a running locked fashion and there was oozing on the middle of the incision, which was controlled with [id number] stitches with 0 Vicryl 2 times and excellent hemostasis was achieved. Cul-de-sac was irrigated with warm normal saline and suctioned. Uterus was returned to the abdomen. Pelvis was irrigated with warm normal saline and suctioned. The vesicouterine peritoneum was reapproximated with 3-0 Vicryl in a running fashion. Pelvis was irrigated again and the incision was checked to be hemostatic. Parietal peritoneum was reapproximated with 3-0 Vicryl in a running fashion. Rectus muscles were brought together with the same suture in a running fashion, and under the fascia and over the rectus muscles were hemostatic. Rectus fascia was reapproximated with 0 Vicryl in a running fashion. Subcuticular fat tissue was brought together with 3-0 Vicryl in a running fashion. Skin was closed with 4-0 Monocryl in a subcuticular fashion. The patient tolerated the procedure well. Sponge, lap, needle count was correct x3 and no complications happened. I was present during whole procedure. The patient was given 2 grams of cefazolin before surgery and 500 mg of azithromycin during surgery. She will be continued on IV antibiotics for 48 hours. Job ID: [id number] [facility]
[2021-03-15] MEDS: SIMETHICONE 80 MG CHEW PO SCH ×3 (13:42→21:01)
[2021-03-15] MEDS: ceFAZolin 2000MG 2,000 MG/15 ML SYR IV SCH (17:03)
[2021-03-15] MEDS ORDERED: LACTATED RINGER'S 500 ML IV ONE (17:41)
--- NOTE | 2021-03-15 17:41 | Obstetrical Progress Note ---
Date of Service March 15, 2021 Assessment & Plan Admission and Anticipated Discharge Date Admission Date: March 12, 2021 Subjective Patient is seen and examined. I was called at her pulse is elevated and she has been feeling occasional chest discomfort. When I went into the room patient was eating, drinking and smiling. She did not appear in distress. She stated that she gets a quick jolt-like discomfort in the middle of her chest when she moves, laughs. It only lasts for a few seconds and goes away. She denies chest pressure, constant pain, radiation to chin or left arm, shortness of breath. Her pulse ox has been 98% in room air. Her pain has been under control with medications. She denies leg pain, swelling, edema. Next Cardiovascular system S1-S2 RRR, tachycardic, Lungs clear to auscultation bilaterally, Abdomen soft appropriately tender, Extremities, SCDs on, nontender, no edema, no redness, Homans' sign negative bilaterally. Plan to obtain EKG, labs and monitor closely. All questions were answered. Results & Data ([facility]) Vital Signs (Past 12 Hours) Vital Signs Temp Pulse Pulse Resp BP BP Pulse Ox 03/15/21 15:52 37 C 107 H 18 113/77 95 03/15/21 15:40 20 95 03/15/21 14:40 37.2 C 108 H 20 109/72 95 03/15/21 13:40 16 95 03/15/21 13:39 36.7 C 100 H 16 105/68 95 03/15/21 12:40 36.7 C 96 H 18 107/73 95 03/15/21 12:32 108 H 92 03/15/21 12:27 91 H 91 03/15/21 12:26 100 H 89 L 03/15/21 12:22 91 H 90 03/15/21 12:17 91 H 91 03/15/21 12:12 99 H 92 03/15/21 12:07 96 H 92 03/15/21 12:02 96 H 91 03/15/21 11:57 103 H 92 03/15/21 11:52 105 H 93 03/15/21 11:50 37.2 C 18 03/15/21 11:48 111 H 113/61 03/15/21 11:47 117 H 90 03/15/21 11:46 118 H 89 L 03/15/21 11:42 108 H 92 03/15/21 11:38 107 H 111/56 L 03/15/21 11:37 102 H 91 03/15/21 11:32 108 H 91 03/15/21 11:28 114 H 109/62 03/15/21 11:27 118 H 93 03/15/21 11:22 102 H 95 03/15/21 11:20 18 03/15/21 11:18 111 H 114/71 03/15/21 11:17 107 H 94 03/15/21 11:12 107 H 95 03/15/21 11:08 102 H 120/72 03/15/21 11:07 108 H 96 03/15/21 11:02 100 H 98 03/15/21 10:58 111 H 133/75 03/15/21 10:57 98 H 97 03/15/21 10:52 106 H 96 03/15/21 10:50 36.8 C 18 03/15/21 10:49 105 H 129/67 03/15/21 10:47 123 H 97 03/15/21 10:42 128 H 96 03/15/21 10:40 20 03/15/21 10:37 118 H 96 03/15/21 10:32 108 H 94 03/15/21 10:30 18 03/15/21 10:28 98 H 114/73 03/15/21 10:27 92 H 95 03/15/21 10:22 88 93 03/15/21 10:20 18 03/15/21 10:18 82 109/68 03/15/21 10:17 87 93 03/15/21 10:12 85 93 03/15/21 10:10 18 03/15/21 10:08 78 107/65 03/15/21 10:07 80 93 03/15/21 10:02 85 93 03/15/21 10:00 18 03/15/21 09:58 88 107/62 03/15/21 09:57 89 94 03/15/21 09:55 86 106/56 L 03/15/21 09:52 93 H 94 03/15/21 09:51 98 H 94 03/15/21 09:50 18 03/15/21 09:47 87 100 03/15/21 09:42 87 100 03/15/21 09:41 83 92/50 L 03/15/21 09:40 37.2 C 18 03/15/21 08:16 98 H 129/77 03/15/21 08:14 85 97 03/15/21 08:09 92 H 97 03/15/21 08:04 91 H 97 03/15/21 08:01 91 H 127/77 03/15/21 07:59 92 H 97 03/15/21 07:54 97 H 98 03/15/21 07:49 92 H 97 03/15/21 07:46 99 H 129/78 03/15/21 07:44 106 H 98 03/15/21 07:39 96 H 98 03/15/21 07:34 97 H 98 03/15/21 07:32 96 H 134/68 03/15/21 07:30 20 03/15/21 07:29 103 H 99 03/15/21 07:24 104 H 97 03/15/21 07:22 103 H 92 03/15/21 07:19 105 H 97 03/15/21 07:16 98 H 127/75 03/15/21 07:14 90 95 03/15/21 07:13 91 H 93 03/15/21 07:09 92 H 96 03/15/21 07:04 111 H 99 03/15/21 07:02 111 H 140/78 03/15/21 07:00 37.2 C 20 03/15/21 06:59 102 H 18 96 03/15/21 06:54 110 H 97 03/15/21 06:49 110 H 100 03/15/21 06:46 91 H 113/63 03/15/21 06:44 96 H 99 03/15/21 06:39 97 H 98 03/15/21 06:34 86 99 03/15/21 06:32 83 123/71 03/15/21 06:30 18 03/15/21 06:29 89 97 03/15/21 06:24 80 97 03/15/21 06:19 83 97 03/15/21 06:17 76 123/70 03/15/21 06:14 77 98 03/15/21 06:09 81 97 03/15/21 06:04 75 99 03/15/21 06:01 83 120/63 03/15/21 06:00 18 03/15/21 05:59 86 98 03/15/21 05:54 77 98 03/15/21 05:49 79 99 03/15/21 05:46 80 118/68 03/15/21 05:44 80 97 03/15/21 05:39 81 97
[2021-03-15] MEDS ORDERED: OXYTOCIN 20 UNITS in LACTATED RINGER'S 1,000 ML IV SCH (18:00)
[2021-03-15 18:09] LABS: Basophils # (auto) 0.01 K/uL (0-0.2); Basophils % (auto) 0.1 %; Hematocrit (blood only) 34.7 % (37-47); Hemoglobin 11.5 g/dL (12.0-16.0); Immature Granulocytes # (auto) 0.06 K/uL (0.00-0.02); Immature Granulocytes % (auto) 0.3 %; Lymphocytes # (auto) 0.39 K/uL (1.2-3.4); Lymphocytes % (auto) 2.2 %; Mean Corpuscular Hemoglobin 28.7 pg (25-34); Mean Corpuscular Volume 86.5 fL (80-100); Mean Platelet Volume 10.7 fL (7.4-10.4); Monocytes % (auto) 2.2 %; Neutrophils % (auto) 95.2 %; Platelet Count 168 K/uL (130-400); RDW Coefficient of Variation 13.4 % (11.5-14.5); RDW Standard Deviation 42.7 fL (36.4-46.3); Red Blood Count 4.01 M/uL (4.2-5.4); White Blood Count 17.96 K/uL (4.8-10.8)
[2021-03-15 18:12] LABS: Mean Corpuscular Hgb Conc 33.1 g/dL (32-36)
[2021-03-15 18:26] LABS: Albumin Level 1.8 gm/dl (3.4-5.0); BUN Creatinine Ratio 9.8 (10-20); Calcium 8.3 mg/dl (8.5-10.1); Creatinine Clr Calc Pharmacy 101.7 ml/min; Est GFR (African American) 103.6 ml/min; Est GFR (Non-African American) 89.4 ml/min; Potassium 3.9 mmol/L (3.5-5.1)
[2021-03-15 18:28] LABS: Albumin Globulin Ratio 0.5 (0.9-2); Bilirubin,Total 0.8 mg/dl (0.2-1); Globulin 3.6 gm/dl (2.5-4.0); Total Protein 5.4 gm/dl (6.4-8.2)
[2021-03-15] MEDS ORDERED: GENTAMICIN CONSULT ACTIVE PRN (18:58)
[2021-03-15] MEDS: GENTAMICIN SULFATE 440 MG in DEXTROSE 5% 100 ML IV SCH (19:55)
--- NOTE | 2021-03-15 20:11 | Pharmacy Report ---
Pharmacy Abx Dose Short Note - Date of Service March 15, 2021 - Assessment & Plan Assessment 30 year old F receiving IV Gentamicin and Clindamycin (not a consult) for treatment of endometritis Day # 1 of antimicrobial therapy. Plan * Dose gentamicin 5mg/kg IV q24, which is the preferred dosing regimen * Gentamicin 440mg (actual body weight 5mg/kg) IV q24 * Consider ordering trough if therapy continues >48-72 hours or if renal function significantly changes Pharmacy will continue to follow and will adjust dose/frequency as necessary. Thank you.
[2021-03-15] MEDS: DOCUSATE SODIUM 100 MG CAP PO SCH (21:01)
--- NOTE | 2021-03-15 22:14 | Anesthesiology Progress Note ---
Date of Service March 15, 2021 Anesthesia Post Procedure Vital Signs Vital Signs: Temp Pulse Pulse Pulse Resp BP BP 03/15/21 21:48 18 03/15/21 20:05 20 03/15/21 19:25 37.3 C 106 H 20 107/71 03/15/21 18:04 20 03/15/21 17:00 20 03/15/21 16:00 16 03/15/21 15:52 37 C 107 H 18 113/77 03/15/21 15:40 20 03/15/21 14:40 37.2 C 108 H 20 109/72 03/15/21 13:40 16 03/15/21 13:39 36.7 C 100 H 16 105/68 03/15/21 12:40 36.7 C 96 H 18 107/73 03/15/21 12:32 108 H 03/15/21 12:27 91 H 03/15/21 12:26 100 H 03/15/21 12:22 91 H 03/15/21 12:17 91 H 03/15/21 12:12 99 H 03/15/21 12:07 96 H 03/15/21 12:02 96 H 03/15/21 11:57 103 H 03/15/21 11:52 105 H 03/15/21 11:50 37.2 C 18 03/15/21 11:48 111 H 113/61 03/15/21 11:47 117 H 03/15/21 11:46 118 H 03/15/21 11:42 108 H 03/15/21 11:38 107 H 111/56 L 03/15/21 11:37 102 H 03/15/21 11:32 108 H 03/15/21 11:28 114 H 109/62 03/15/21 11:27 118 H 03/15/21 11:22 102 H 03/15/21 11:20 18 03/15/21 11:18 111 H 114/71 03/15/21 11:17 107 H 03/15/21 11:12 107 H 03/15/21 11:08 102 H 120/72 03/15/21 11:07 108 H 03/15/21 11:02 100 H 03/15/21 10:58 111 H 133/75 03/15/21 10:57 98 H 03/15/21 10:52 106 H 03/15/21 10:50 36.8 C 18 03/15/21 10:49 105 H 129/67 03/15/21 10:47 123 H 03/15/21 10:42 128 H 03/15/21 10:40 20 03/15/21 10:37 118 H 03/15/21 10:32 108 H 03/15/21 10:30 18 03/15/21 10:28 98 H 114/73 03/15/21 10:27 92 H 03/15/21 10:22 88 03/15/21 10:20 18 03/15/21 10:18 82 109/68 03/15/21 10:17 87 03/15/21 10:12 85 03/15/21 10:10 18 03/15/21 10:08 78 107/65 03/15/21 10:07 80 03/15/21 10:02 85 03/15/21 10:00 18 03/15/21 09:58 88 107/62 03/15/21 09:57 89 03/15/21 09:55 86 106/56 L 03/15/21 09:52 93 H 03/15/21 09:51 98 H 03/15/21 09:50 18 03/15/21 09:47 87 03/15/21 09:42 87 03/15/21 09:41 83 92/50 L 03/15/21 09:40 37.2 C 18 03/15/21 08:16 98 H 129/77 03/15/21 08:14 85 03/15/21 08:09 92 H 03/15/21 08:04 91 H 03/15/21 08:01 91 H 127/77 03/15/21 07:59 92 H 03/15/21 07:54 97 H 03/15/21 07:49 92 H 03/15/21 07:46 99 H 129/78 03/15/21 07:44 106 H 03/15/21 07:39 96 H 03/15/21 07:34 97 H 03/15/21 07:32 96 H 134/68 03/15/21 07:30 20 03/15/21 07:29 103 H 03/15/21 07:24 104 H 03/15/21 07:22 103 H 03/15/21 07:19 105 H 03/15/21 07:16 98 H 127/75 03/15/21 07:14 90 03/15/21 07:13 91 H 03/15/21 07:09 92 H 03/15/21 07:04 111 H 03/15/21 07:02 111 H 140/78 03/15/21 07:00 37.2 C 20 03/15/21 06:59 102 H 18 03/15/21 06:54 110 H 03/15/21 06:49 110 H 03/15/21 06:46 91 H 113/63 03/15/21 06:44 96 H 03/15/21 06:39 97 H 03/15/21 06:34 86 03/15/21 06:32 83 123/71 03/15/21 06:30 18 03/15/21 06:29 89 03/15/21 06:24 80 03/15/21 06:19 83 03/15/21 06:17 76 123/70 03/15/21 06:14 77 03/15/21 06:09 81 03/15/21 06:04 75 03/15/21 06:01 83 120/63 03/15/21 06:00 18 03/15/21 05:59 86 03/15/21 05:54 77 03/15/21 05:49 79 03/15/21 05:46 80 118/68 03/15/21 05:44 80 03/15/21 05:39 81 03/15/21 05:34 89 03/15/21 05:31 81 122/70 03/15/21 05:30 18 03/15/21 05:29 75 03/15/21 05:24 82 03/15/21 05:19 101 H 03/15/21 05:16 105 H 121/73 03/15/21 05:14 107 H 03/15/21 05:13 101 H 03/15/21 05:09 118 H 03/15/21 05:04 97 H 03/15/21 05:01 71 125/68 03/15/21 05:00 37.2 C 18 03/15/21 04:59 76 03/15/21 04:54 73 03/15/21 04:49 74 03/15/21 04:46 71 118/68 03/15/21 04:44 69 03/15/21 04:39 71 03/15/21 04:37 77 03/15/21 04:34 73 03/15/21 04:31 75 126/70 03/15/21 04:30 16 03/15/21 04:29 73 03/15/21 04:24 75 03/15/21 04:19 90 03/15/21 04:16 87 123/68 03/15/21 04:14 85 03/15/21 04:09 92 H 03/15/21 04:08 96 H 03/15/21 04:04 70 03/15/21 04:02 75 118/66 03/15/21 04:00 18 03/15/21 03:59 74 03/15/21 03:54 74 03/15/21 03:49 74 03/15/21 03:47 76 120/67 03/15/21 03:44 72 03/15/21 03:39 72 03/15/21 03:34 73 03/15/21 03:32 81 122/67 03/15/21 03:30 18 03/15/21 03:29 76 03/15/21 03:26 74 03/15/21 03:24 78 03/15/21 03:20 75 03/15/21 03:19 83 03/15/21 03:16 72 118/67 03/15/21 03:14 79 03/15/21 03:09 76 03/15/21 03:08 75 03/15/21 03:04 75 03/15/21 03:01 74 120/68 03/15/21 03:00 16 03/15/21 02:59 74 03/15/21 02:54 77 03/15/21 02:49 75 03/15/21 02:47 71 123/70 03/15/21 02:44 71 03/15/21 02:39 72 03/15/21 02:34 81 03/15/21 02:31 75 126/74 03/15/21 02:29 81 03/15/21 02:24 72 03/15/21 02:19 74 03/15/21 02:16 82 117/74 03/15/21 02:14 82 03/15/21 02:10 37.1 C 03/15/21 02:09 89 03/15/21 02:04 66 10/29/21 02:02 74 119/69 03/15/21 02:00 18 03/15/21 01:59 72 03/15/21 01:54 62 03/15/21 01:49 64 03/15/21 01:46 65 116/65 03/15/21 01:44 67 03/15/21 01:39 66 03/15/21 01:34 66 03/15/21 01:32 64 114/63 03/15/21 01:30 18 03/15/21 01:29 66 03/15/21 01:26 68 03/15/21 01:24 64 03/15/21 01:20 66 03/15/21 01:19 67 03/15/21 01:17 70 114/66 03/15/21 01:14 64 03/15/21 01:12 63 03/15/21 01:09 66 03/15/21 01:04 62 03/15/21 01:01 61 109/61 03/15/21 01:00 16 03/15/21 00:59 64 03/15/21 00:54 68 03/15/21 00:52 67 03/15/21 00:49 65 03/15/21 00:47 66 111/63 03/15/21 00:46 66 03/15/21 00:44 68 03/15/21 00:39 70 03/15/21 00:37 36.5 C 03/15/21 00:34 87 03/15/21 00:31 70 89/54 L 03/15/21 00:30 18 03/15/21 00:29 67 03/15/21 00:24 73 03/15/21 00:19 71 03/15/21 00:16 71 87/51 L 03/15/21 00:14 71 03/15/21 00:09 73 03/15/21 00:04 70 03/15/21 00:02 72 93/50 L 03/15/21 00:00 18 03/14/21 23:59 74 03/14/21 23:54 77 03/14/21 23:49 72 03/14/21 23:47 70 91/52 L 03/14/21 23:44 69 03/14/21 23:39 76 03/14/21 23:34 70 03/14/21 23:31 68 96/52 L 03/14/21 23:30 18 03/14/21 23:29 73 03/14/21 23:24 78 03/14/21 23:19 74 03/14/21 23:16 68 93/51 L 03/14/21 23:15 18 03/14/21 23:14 84 03/14/21 23:10 74 20 100/57 L 03/14/21 23:09 74 03/14/21 23:05 75 18 96/55 L 03/14/21 23:04 81 03/14/21 23:00 37.0 C 76 18 99/56 L 03/14/21 22:59 77 03/14/21 22:55 18 03/14/21 22:54 76 97/56 L 03/14/21 22:52 80 100/57 L 03/14/21 22:50 87 18 99/53 L 03/14/21 22:49 75 101/53 L 03/14/21 22:45 18 03/14/21 22:44 102 H 119/70 03/14/21 22:42 78 121/72 03/14/21 22:40 78 18 121/75 03/14/21 22:39 88 03/14/21 22:37 83 121/74 03/14/21 22:34 78 03/14/21 22:29 89 03/14/21 22:24 75 03/14/21 22:19 87 Pulse Ox 03/15/21 21:48 95 03/15/21 20:05 96 03/15/21 19:25 93 03/15/21 18:04 95 03/15/21 17:00 98 03/15/21 16:00 96 03/15/21 15:52 95 03/15/21 15:40 95 03/15/21 14:40 95 03/15/21 13:40 95 03/15/21 13:39 95 03/15/21 12:40 95 03/15/21 12:32 92 03/15/21 12:27 91 03/15/21 12:26 89 L 03/15/21 12:22 90 03/15/21 12:17 91 03/15/21 12:12 92 03/15/21 12:07 92 03/15/21 12:02 91 03/15/21 11:57 92 03/15/21 11:52 93 03/15/21 11:50 03/15/21 11:48 03/15/21 11:47 90 03/15/21 11:46 89 L 03/15/21 11:42 92 03/15/21 11:38 03/15/21 11:37 91 03/15/21 11:32 91 03/15/21 11:28 03/15/21 11:27 93 03/15/21 11:22 95 03/15/21 11:20 03/15/21 11:18 03/15/21 11:17 94 03/15/21 11:12 95 03/15/21 11:08 03/15/21 11:07 96 03/15/21 11:02 98 03/15/21 10:58 03/15/21 10:57 97 03/15/21 10:52 96 03/15/21 10:50 03/15/21 10:49 03/15/21 10:47 97 03/15/21 10:42 96 03/15/21 10:40 03/15/21 10:37 96 03/15/21 10:32 94 03/15/21 10:30 03/15/21 10:28 03/15/21 10:27 95 03/15/21 10:22 93 03/15/21 10:20 03/15/21 10:18 03/15/21 10:17 93 03/15/21 10:12 93 03/15/21 10:10 03/15/21 10:08 03/15/21 10:07 93 03/15/21 10:02 93 03/15/21 10:00 03/15/21 09:58 03/15/21 09:57 94 03/15/21 09:55 03/15/21 09:52 94 03/15/21 09:51 94 03/15/21 09:50 03/15/21 09:47 100 03/15/21 09:42 100 03/15/21 09:41 03/15/21 09:40 03/15/21 08:16 03/15/21 08:14 97 03/15/21 08:09 97 03/15/21 08:04 97 03/15/21 08:01 03/15/21 07:59 97 03/15/21 07:54 98 03/15/21 07:49 97 03/15/21 07:46 03/15/21 07:44 98 03/15/21 07:39 98 03/15/21 07:34 98 03/15/21 07:32 03/15/21 07:30 03/15/21 07:29 99 03/15/21 07:24 97 03/15/21 07:22 92 03/15/21 07:19 97 03/15/21 07:16 03/15/21 07:14 95 03/15/21 07:13 93 03/15/21 07:09 96 03/15/21 07:04 99 03/15/21 07:02 03/15/21 07:00 03/15/21 06:59 96 03/15/21 06:54 97 03/15/21 06:49 100 03/15/21 06:46 03/15/21 06:44 99 03/15/21 06:39 98 03/15/21 06:34 99 03/15/21 06:32 03/15/21 06:30 03/15/21 06:29 97 03/15/21 06:24 97 03/15/21 06:19 97 03/15/21 06:17 03/15/21 06:14 98 03/15/21 06:09 97 03/15/21 06:04 99 03/15/21 06:01 03/15/21 06:00 03/15/21 05:59 98 03/15/21 05:54 98 03/15/21 05:49 99 03/15/21 05:46 03/15/21 05:44 97 03/15/21 05:39 97 03/15/21 05:34 96 03/15/21 05:31 03/15/21 05:30 03/15/21 05:29 95 03/15/21 05:24 97 03/15/21 05:19 96 03/15/21 05:16 03/15/21 05:14 95 03/15/21 05:13 94 03/15/21 05:09 97 03/15/21 05:04 97 03/15/21 05:01 03/15/21 05:00 03/15/21 04:59 97 10/29/21 04:54 96 03/15/21 04:49 97 03/15/21 04:46 03/15/21 04:44 97 03/15/21 04:39 97 03/15/21 04:37 92 03/15/21 04:34 97 03/15/21 04:31 03/15/21 04:30 03/15/21 04:29 98 03/15/21 04:24 98 03/15/21 04:19 97 03/15/21 04:16 03/15/21 04:14 98 03/15/21 04:09 98 03/15/21 04:08 94 03/15/21 04:04 96 03/15/21 04:02 03/15/21 04:00 03/15/21 03:59 97 03/15/21 03:54 96 03/15/21 03:49 95 03/15/21 03:47 03/15/21 03:44 95 03/15/21 03:39 95 03/15/21 03:34 95 03/15/21 03:32 03/15/21 03:30 03/15/21 03:29 96 03/15/21 03:26 94 03/15/21 03:24 96 03/15/21 03:20 94 03/15/21 03:19 93 03/15/21 03:16 03/15/21 03:14 94 03/15/21 03:09 94 03/15/21 03:08 94 03/15/21 03:04 96 03/15/21 03:01 03/15/21 03:00 03/15/21 02:59 96 03/15/21 02:54 96 03/15/21 02:49 96 03/15/21 02:47 03/15/21 02:44 97 03/15/21 02:39 97 03/15/21 02:34 99 03/15/21 02:31 03/15/21 02:29 99 03/15/21 02:24 99 03/15/21 02:19 99 03/15/21 02:16 03/15/21 02:14 100 03/15/21 02:10 03/15/21 02:09 99 03/15/21 02:04 97 03/15/21 02:02 03/15/21 02:00 03/15/21 01:59 98 03/15/21 01:54 96 03/15/21 01:49 95 03/15/21 01:46 03/15/21 01:44 95 03/15/21 01:39 95 03/15/21 01:34 95 03/15/21 01:32 94 03/15/21 01:30 03/15/21 01:29 95 03/15/21 01:26 94 03/15/21 01:24 95 03/15/21 01:20 94 03/15/21 01:19 95 03/15/21 01:17 03/15/21 01:14 95 03/15/21 01:12 94 03/15/21 01:09 95 03/15/21 01:04 95 03/15/21 01:01 03/15/21 01:00 03/15/21 00:59 95 03/15/21 00:54 94 03/15/21 00:52 93 03/15/21 00:49 95 03/15/21 00:47 03/15/21 00:46 94 03/15/21 00:44 96 03/15/21 00:39 96 03/15/21 00:37 03/15/21 00:34 95 03/15/21 00:31 03/15/21 00:30 03/15/21 00:29 96 03/15/21 00:24 96 03/15/21 00:19 96 03/15/21 00:16 03/15/21 00:14 96 03/15/21 00:09 95 03/15/21 00:04 95 03/15/21 00:02 03/15/21 00:00 03/14/21 23:59 96 03/14/21 23:54 97 03/14/21 23:49 96 03/14/21 23:47 03/14/21 23:44 96 03/14/21 23:39 97 03/14/21 23:34 96 03/14/21 23:31 03/14/21 23:30 03/14/21 23:29 96 03/14/21 23:24 97 03/14/21 23:19 97 03/14/21 23:16 03/14/21 23:15 03/14/21 23:14 97 10/28/21 23:10 03/14/21 23:09 97 03/14/21 23:05 03/14/21 23:04 98 03/14/21 23:00 03/14/21 22:59 98 03/14/21 22:55 03/14/21 22:54 97 03/14/21 22:52 03/14/21 22:50 03/14/21 22:49 98 03/14/21 22:45 03/14/21 22:44 98 03/14/21 22:42 03/14/21 22:40 03/14/21 22:39 98 03/14/21 22:37 03/14/21 22:34 98 03/14/21 22:29 98 03/14/21 22:24 99 03/14/21 22:19 99 Pain Intensity Lower Abdomen: Pain Intensity: 2 Bilateral Back: Pain Intensity: 5 Transfer of Care Handoff Completed per policy Notes Mental Status: alert / awake / arousable Patient Amnestic to Procedure: Yes Nausea / Vomiting: adequately controlled Pain: adequately controlled Airway Patency, RR, SpO2: stable & adequate BP & HR: stable & adequate Hydration State: stable & adequate Neuraxial Anesthesia: was administered and sensory block is resolving Anesthetic Complications: no major complications apparent
[2021-03-16] MEDS: ceFAZolin 2000MG 2,000 MG/15 ML SYR IV SCH ×3 (01:45→17:43)
[2021-03-16] MEDS ORDERED: LACTATED RINGER'S 1,000 ML IV SCH (02:00)
[2021-03-16] MEDS: CLINDAMYCIN 900 MG in DEXTROSE 5% 50 ML IV SCH ×3 (02:09→17:50)
[2021-03-16] MEDS ORDERED: ONDANSETRON INJ 2 MG/ML 2 ML VIAL IV PRN (02:59)
[2021-03-16] MEDS ORDERED: diphenhydrAMINE 50 MG/ML VIAL IV PRN (02:59)
[2021-03-16] MEDS ORDERED: KETOROLAC 30 MG/ML VIAL IV PRN (02:59)
[2021-03-16] MEDS ORDERED: diphenhydrAMINE Capsule 25 MG CAP PO PRN (02:59)
[2021-03-16] MEDS ORDERED: MEPERIDINE HCL 50 MG/ML CARP IV PRN (02:59)
[2021-03-16] MEDS ORDERED: PROMETHAZINE HCL 25 MG in SODIUM CHLORIDE 0.9% 50 ML IV PRN (02:59)
--- NOTE | 2021-03-16 04:22 | Consultation Report ---
DATE OF CONSULT: 03/15/2021. REASON FOR CONSULT: Tachycardia and elevated lactic acid. HISTORY OF PRESENT ILLNESS: This is a 30-year-old female, 1, para 1, was admitted and status post c section and there was suspicion of amnitic fluid infection.. Today, the patient developed some chest discomfort, palpitations and the labs were checked. She was having elevated lactic acid of 3.1, so we were called for admission. She was given fluids. She received antibiotic gentamicin, Keflex and clindamycin. Repeat lactic acid was 1.5. The patient is currently resting comfortably and hemodynamically stable. She says she has no bowel bowel movement , she is not passing. Possible chest discomfort on and off, could be from GI related.She did not feel any palpitations, No shortness of breath, no fevers, no headache, no blurred visions, no runny nose, no sore throat, no cough, no nausea, no swelling in the legs. ALLERGIES: AMOXICILLIN. PAST MEDICAL HISTORY: None. PAST SURGICAL HISTORY: Status post 3 . MEDICATIONS: Currently on vitamins. FAMILY HISTORY: Significant for maternal grandmother had breast cancer, paternal grandfather had diabetes; maternal grandmother had diabetes, paternal grandmother has diabetes; father has heart disorder. Mother has a cardiomyopathy. Mother has spherocytosis. SOCIAL HISTORY: , no smoking, no alcohol, no drug use. REVIEW OF SYSTEMS: As per HPI. Rest of review of systems is negative. PHYSICAL EXAMINATION: GENERAL: The patient is obese, not in acute distress. VITAL SIGNS: Temperature 37.1, pulse 112, respirations 16, blood pressure 113/71, oxygen 91% on room air. HEENT: Head atraumatic. NECK: No JVD. No neck masses seen. CARDIOVASCULAR: S1 and S2 heard, regular rate and rhythm. No murmur, no gallop. RESPIRATORY SYSTEM: Normal AP diameter. No accessory muscle use. No wheezing, no crackles. ABDOMEN: Soft, mild distention. Sluggish bowel sounds, some tenderness in the surgical site. CENTRAL NERVOUS SYSTEM: Cranial nerves II through XII are grossly intact, nonfocal. EXTREMITIES: Mild pedal edema, no erythema seen. LABORATORY DATA: WBC 17.9, hemoglobin 11.5, hematocrit 34.7, platelets 168. Sodium 137, potassium 3.9, chloride 108, bicarbonate 20, BUN 29, creatinine 0.8, serum glucose 129. Lactate was 3.1, repeat was 1.5. Calcium 8.3, total bilirubin 0.8, AST 16, ALT 10, alkaline phosphatase 120. Troponin I less than 0.015. EKG: Sinus tachycardia at a rate of 114. Nonspecific T-wave abnormality. ASSESSMENT AND PLAN: This is a 30-year-old female who is status post , has some chest discomfort and palpitations and tachycardia. 1. Chest discomfort. tachycardia. Denies any shortness of breath. We will follow the echocardiogram and serial cardiac enzymes, currently stable. If anything concerning then we will do a CT of the chest to rule out any pulmonary embolism. For now we will closely monitor. 2. Possible infection with elevated lactic acid that is improved with fluids.on antibiotics, Keflex, clindamycin and gentamicin. We will follow the cultures.Close monitor. 3. Constipation, sluggish bowel sounds. If not improving, we will get a KUB x- ray in a.m. 4. Deep venous thrombosis prophylaxis. DISPOSITION: As per [employer]. Job ID: [id number] [facility]
[2021-03-16 06:46] LABS: Basophils # (auto) 0.01 K/uL (0-0.2); Basophils % (auto) 0.1 %; Eosinophils # (auto) 0.02 K/uL (0-0.5); Eosinophils % (auto) 0.1 %; Hematocrit (blood only) 31.4 % (37-47); Hemoglobin 10.7 g/dL (12.0-16.0); Immature Granulocytes # (auto) 0.05 K/uL (0.00-0.02); Immature Granulocytes % (auto) 0.3 %; Lymphocytes # (auto) 0.64 K/uL (1.2-3.4); Lymphocytes % (auto) 3.7 %; Mean Corpuscular Hemoglobin 29.6 pg (25-34); Mean Corpuscular Hgb Conc 34.1 g/dL (32-36); Mean Corpuscular Volume 86.7 fL (80-100); Mean Platelet Volume 10.5 fL (7.4-10.4); Monocytes # (auto) 0.54 K/uL (0.11-0.59); Monocytes % (auto) 3.2 %; Neutrophils # (auto) 15.84 K/uL (1.4-6.5); Neutrophils % (auto) 92.6 %; Platelet Count 155 K/uL (130-400); RDW Coefficient of Variation 13.6 % (11.5-14.5); RDW Standard Deviation 43.5 fL (36.4-46.3); Red Blood Count 3.62 M/uL (4.2-5.4)
[2021-03-16 07:01] LABS: Alanine Aminotransferase 11 U/L (12-78); Albumin Level 1.7 gm/dl (3.4-5.0); Aspartate Aminotransferase 15 U/L (15-37); BUN Creatinine Ratio 9.8 (10-20); Blood Urea Nitrogen 8 mg/dl (7-18); Calcium 8.1 mg/dl (8.5-10.1); Carbon Dioxide 24 mmol/L (21-32); Chloride 105 mmol/L (98-107); Creatinine Clr Calc Pharmacy 111.8 ml/min; Est GFR (African American) 116.3 ml/min; Est GFR (Non-African American) 100.3 ml/min; Glucose 85 mg/dl (70-99); Magnesium 1.5 mg/dl (1.8-2.4); Potassium 3.9 mmol/L (3.5-5.1); Sodium 136 mmol/L (136-145)
[2021-03-16 07:06] LABS: Albumin Globulin Ratio 0.5 (0.9-2); Alkaline Phosphatase 113 U/L (45-117); Bilirubin,Total 0.6 mg/dl (0.2-1); Globulin 3.6 gm/dl (2.5-4.0); Total Protein 5.3 gm/dl (6.4-8.2); Troponin I < 0.015 ng/ml (0-0.045)
--- NOTE | 2021-03-16 07:45 | Hospitalist Progress Note ---
Date of Service March 16, 2021 Assessment & Plan (1) Chest pain: Plan: This is a 30-year-old female who is status post , presents w/ some chest discomfort, palpitations and tachycardia. Found to have elevated lactic acid, and there is concern per [employer] of amniotic fluid infection. 1. Chest discomfort. tachycardia. Currently patient denies any chest pain, shortness of breath, palpitations. She is hemodynamically stable Troponin x2 negative Echocardiogram obtained and unremarkable - shows mild concentric LVH. No regional wall motion abnormality. LV systolic function is normal. LVEF 60 to 65%. RV is normal in size and function. There is no significant valvular pathology. If anything concerning then we will do a CT of the chest to rule out any pulmonary embolism. For now we will closely monitor. 2. Hypomagnesemia Current magnesium 1.5, goal above 2 Started mag oxide p.o. supplement 3. Possible infection (concern for allergic fluid infection, per [employer]), with elevated lactic acid that is improved with fluids. WBC elevated Started on antibiotics, Keflex, clindamycin and gentamicin. We will follow the cultures.Closely monitor. 3. Constipation, sluggish bowel sounds. Seems to be improving. If any worsening , we will get a KUB x-ray. 4. Deep venous thrombosis prophylaxis. Per [employer] DISPOSITION: As per [employer]. Admission and Anticipated Discharge Date Admission Date: March 12, 2021 Subjective Patient seen in follow-up of chest pain Currently sitting up in bed, in no acute distress, comfortable Denies any more chest pain, shortness of breath, palpitations She is conversing easily, smiling and child at the bedside Pt denies any significant abdominal pain, says she is tolerating diet Echo obtained this morning Review of Systems Review of Systems: All systems reviewed & are unremarkable except as noted in Subjective Physical Exam Physical Exam: GENERAL:Well-developed, well-nourished young F in NAD HEENT: NC/AT, EOMI, PERRL NECK: No JVD. No neck masses seen. CARDIOVASCULAR: S1 and S2 heard, regular rate and rhythm. No murmur, no gallop. RESPIRATORY: Normal AP diameter. No accessory muscle use.CTAB. No wheezing, no crackles. ABDOMEN: Soft, mild distention. Sluggish bowel sounds, some tenderness in the surgical site. Clean surg. dressings. NEURO:Alert oriented, answering questions appropriately, no facial asymmetry, moves extremities EXTREMITIES: Mild pedal edema, no erythema seen. Results & Data Results & Data ([facility]) Vital Signs (Past 12 Hours) Vital Signs Temp Pulse Resp BP Pulse Ox 03/16/21 03:45 36.6 C 93 H 18 97/64 L 94 03/16/21 02:16 16 91 03/16/21 01:32 18 92 03/16/21 00:00 20 93 03/15/21 23:15 37.5 C 112 H 16 113/71 93 03/15/21 22:30 18 95 03/15/21 21:48 18 95 03/15/21 20:05 20 96 Laboratory Results 03/16/21 03/16/21 03/16/21 Range/Units 06:35 06:35 06:35 WBC 17.10 H (4.8-10.8) K/uL RBC 3.62 L (4.2-5.4) M/uL Hgb 10.7 L (12.0-16.0) g/dL Hct 31.4 L (37-47) % MCV 86.7 (80-100) fL MCH 29.6 (25-34) pg MCHC 34.1 (32-36) g/dL RDW Std Deviation 43.5 (36.4-46.3) fL RDW Coeff of Ollita 13.6 (11.5-14.5) % Plt Count 155 (130-400) K/uL MPV 10.5 H (7.4-10.4) fL Immature Gran % (Auto) 0.3 % Neut % (Auto) 92.6 % Lymph % (Auto) 3.7 % [place] % (Auto) 3.2 % Eos % (Auto) 0.1 % Baso % (Auto) 0.1 % Neut # (Auto) 15.84 H (1.4-6.5) K/uL Lymph # (Auto) 0.64 L (1.2-3.4) K/uL [place] # (Auto) 0.54 (0.11-0.59) K/uL Eos # (Auto) 0.02 (0-0.5) K/uL Baso # (Auto) 0.01 (0-0.2) K/uL Immature Gran # (Auto) 0.05 H (0.00-0.02) K/uL Sodium 136 (136-145) mmol/L Potassium 3.9 (3.5-5.1) mmol/L Chloride 105 (98-107) mmol/L Carbon Dioxide 24 (21-32) mmol/L Anion Gap 6.0 (3-11) BUN 8 (7-18) mg/dl Creatinine 0.80 (0.6-1.2) mg/dl Est Cr Clr Drug Dosing 111.8 ml/min Est GFR ( Amer) 116.3 ml/min Est GFR (Non-Af Amer) 100.3 ml/min BUN/Creatinine Ratio 9.8 L (10-20) Glucose 85 (70-99) mg/dl Lactate 0.9 (0.4-2.0) mmol/L Calcium 8.1 L (8.5-10.1) mg/dl Magnesium 1.5 L (1.8-2.4) mg/dl Total Bilirubin 0.6 (0.2-1) mg/dl AST 15 (15-37) U/L ALT 11 L (12-78) U/L Alkaline Phosphatase 113 (45-117) U/L Troponin I < 0.015 (0-0.045) ng/ml Total Protein 5.3 L (6.4-8.2) gm/dl Albumin 1.7 L (3.4-5.0) gm/dl Globulin 3.6 (2.5-4.0) gm/dl Albumin/Globulin Ratio 0.5 L (0.9-2) Blood Type Antibody Screen Crossmatch 03/15/21 03/15/21 03/15/21 Range/Units 20:07 20:07 18:00 WBC (4.8-10.8) K/uL RBC (4.2-5.4) M/uL Hgb (12.0-16.0) g/dL Hct (37-47) % MCV (80-100) fL MCH (25-34) pg MCHC (32-36) g/dL RDW Std Deviation (36.4-46.3) fL RDW Coeff of Lolita (11.5-14.5) % Plt Count (130-400) K/uL MPV (7.4-10.4) fL Immature Gran % (Auto) % Neut % (Auto) % Lymph % (Auto) % [place] % (Auto) % Eos % (Auto) % Baso % (Auto) % Neut # (Auto) (1.4-6.5) K/uL Lymph # (Auto) (1.2-3.4) K/uL [place] # (Auto) (0.11-0.59) K/uL Eos # (Auto) (0-0.5) K/uL Baso # (Auto) (0-0.2) K/uL Immature Gran # (Auto) (0.00-0.02) K/uL Sodium (136-145) mmol/L Potassium (3.5-5.1) mmol/L Chloride (98-107) mmol/L Carbon Dioxide (21-32) mmol/L Anion Gap (3-11) BUN (7-18) mg/dl Creatinine (0.6-1.2) mg/dl Est Cr Clr Drug Dosing ml/min Est GFR ( Amer) ml/min Est GFR (Non-Af Amer) ml/min BUN/Creatinine Ratio (10-20) Glucose (70-99) mg/dl Lactate 1.5 3.1 H* (0.4-2.0) mmol/L Calcium (8.5-10.1) mg/dl Magnesium (1.8-2.4) mg/dl Total Bilirubin (0.2-1) mg/dl AST (15-37) U/L ALT (12-78) U/L Alkaline Phosphatase (45-117) U/L Troponin I < 0.015 (0-0.045) ng/ml Total Protein (6.4-8.2) gm/dl Albumin (3.4-5.0) gm/dl Globulin (2.5-4.0) gm/dl Albumin/Globulin Ratio (0.9-2) Blood Type Antibody Screen Crossmatch 03/15/21 03/15/21 03/15/21 Range/Units 18:00 18:00 07:26 WBC 17.96 H (4.8-10.8) K/uL RBC 4.01 L (4.2-5.4) M/uL Hgb 11.5 L (12.0-16.0) g/dL Hct 34.7 L (37-47) % MCV 86.5 (80-100) fL MCH 28.7 (25-34) pg MCHC 33.1 (32-36) g/dL RDW Std Deviation 42.7 (36.4-46.3) fL RDW Coeff of Lolita 13.4 (11.5-14.5) % Plt Count 168 (130-400) K/uL MPV 10.7 H (7.4-10.4) fL Immature Gran % (Auto) 0.3 % Neut % (Auto) 95.2 % Lymph % (Auto) 2.2 % [place] % (Auto) 2.2 % Eos % (Auto) 0.0 % Baso % (Auto) 0.1 % Neut # (Auto) 17.10 H (1.4-6.5) K/uL Lymph # (Auto) 0.39 L (1.2-3.4) K/uL [place] # (Auto) 0.40 (0.11-0.59) K/uL Eos # (Auto) 0.00 (0-0.5) K/uL Baso # (Auto) 0.01 (0-0.2) K/uL Immature Gran # (Auto) 0.06 H (0.00-0.02) K/uL Sodium 137 (136-145) mmol/L Potassium 3.9 (3.5-5.1) mmol/L Chloride 108 H (98-107) mmol/L Carbon Dioxide 20 L (21-32) mmol/L Anion Gap 9.0 (3-11) BUN 9 (7-18) mg/dl Creatinine 0.88 (0.6-1.2) mg/dl Est Cr Clr Drug Dosing 101.7 ml/min Est GFR ( Amer) 103.6 ml/min Est GFR (Non-Af Amer) 89.4 ml/min BUN/Creatinine Ratio 9.8 L (10-20) Glucose 129 H (70-99) mg/dl Lactate (0.4-2.0) mmol/L Calcium 8.3 L (8.5-10.1) mg/dl Magnesium (1.8-2.4) mg/dl Total Bilirubin 0.8 (0.2-1) mg/dl AST 16 (15-37) U/L ALT 10 L (12-78) U/L Alkaline Phosphatase 129 H (45-117) U/L Troponin I (0-0.045) ng/ml Total Protein 5.4 L (6.4-8.2) gm/dl Albumin 1.8 L (3.4-5.0) gm/dl Globulin 3.6 (2.5-4.0) gm/dl Albumin/Globulin Ratio 0.5 L (0.9-2) Blood Type O Positive Antibody Screen NEGATIVE Crossmatch See Detail Medications Administered Current Inpatient Medications Acetaminophen (Acetaminophen 325 Mg Tab) 650 mg PO Q4H PRN PRN Reason: pain Stop: 04/12/21 09:09 Last Admin: 03/15/21 05:31 Dose: 650 mg Documented by: Benzocaine (Benzocaine 20% Aer Spr 82.5 Gm Can) 1 appln EXT UD PRN PRN Reason: use on skin as needed Stop: 04/14/21 09:25 Bisacodyl (Bisacodyl 5 Mg Tabec) 5 mg PO 2000 ALYCE Stop: 03/16/21 20:01 Bisacodyl (Bisacodyl 10 Mg Supp) 10 mg NC PRN PRN PRN Reason: Constipation Stop: 04/16/21 09:26 Butorphanol Tartrate (Butorphanol Tartrate 1 Mg/Ml Vial) 1 mg IV Q3HWA PRN PRN Reason: Pain Stop: 04/12/21 09:08 Last Admin: 03/14/21 00:05 Dose: 1 mg Documented by: Cocaine HCl (Supercream 0.870% 15 Gm Jar) 1 gm EXT UD PRN PRN Reason: hemmorrhoidal inflammation Stop: 03/29/21 09:25 Diphenhydramine HCl (Diphenhydramine Capsule 25 Mg Cap) 25 mg PO QID PRN PRN Reason: Itching Stop: 04/15/21 02:58 Diphenhydramine HCl (Diphenhydramine 50 Mg/Ml Vial) 25 mg IV QID PRN PRN Reason: Itching Stop: 04/15/21 02:58 Diphtheria/Pertussis/Tetanus Vacc (Diphtheria/Tetanus/Pertussis 0.5 Ml Syr/Vial) 0.5 ml IM .ONCE ONE Stop: 03/16/21 09:01 Docusate Sodium (Docusate Sodium 100 Mg Cap) 100 mg PO DAILY@08,21 [facility] Stop: 04/14/21 20:59 Last Admin: 03/15/21 21:01 Dose: 100 mg Documented by: Ferrous Sulfate (Ferrous Sulfate 325 Mg Tab) 325 mg PO DAILY@ [facility] Stop: 04/15/21 07:59 Hydrocortisone (Hydrocortisone Acetate 25 Mg Supp) 25 mg NC BID PRN PRN Reason: Hemorrhoids Stop: 04/14/21 09:25 Oxytocin (Pitocin) 30 units in 500 mls @ 333.333 mls/hr IV .Q1H30M PRN; Protocol PRN Reason: Bleeding Control Stop: 04/11/21 09:33 Promethazine HCl 25 mg/ Sodium (Chloride) 51 mls @ 204 mls/hr IV Q4H PRN PRN Reason: Nausea And Vomiting Stop: 04/15/21 02:58 Cefazolin Sodium (Ancef 2000mg) 2,000 mg in 15 mls @ 3.75 mls/min IV Q8H [facility] Stop: 03/17/21 17:29 Last Admin: 03/16/21 01:45 Dose: 3.75 mls/min Documented by: Clindamycin Phosphate 900 mg/ (Dextrose) 56 mls @ 112 mls/hr IV Q8H [facility] Stop: 03/17/21 09:59 Last Infusion: 03/16/21 02:39 Dose: Infused Documented by: Gentamicin Sulfate 440 mg/ (Dextrose) 111 mls @ 100 mls/hr IV Q24H [facility]; Protocol Stop: 03/25/21 19:59 Last Infusion: 03/15/21 21:02 Dose: Infused Documented by: Sodium Chloride (Nss 1000ml) 1,000 mls @ 125 mls/hr IV .Q8H [facility] Stop: 04/14/21 19:59 Ibuprofen (Ibuprofen 600 Mg Tab) 600 mg PO Q4H PRN PRN Reason: Pain Stop: 04/14/21 09:25 Ketorolac Tromethamine (Ketorolac 30 Mg/Ml Vial) 30 mg IV Q6H PRN PRN Reason: Pain Stop: 03/21/21 02:58 Magnesium Hydroxide (Magnesium Hydroxide Susp 30 Ml Udc) 30 ml PO HS PRN PRN Reason: Constipation Stop: 04/14/21 09:25 Magnesium Oxide (Magnesium Oxide 400 Mg Tab) 400 mg PO BID [facility] Stop: 04/15/21 08:59 Measles/Mumps/Rubella Vaccine Live (Measles, Mumps & Rubella Virus Vial) 1 vial SQ .ONCE ONE Stop: 03/16/21 09:01 Meperidine HCl (Meperidine Hcl 50 Mg/Ml Carp) 50 - 75 mg IV Q4H PRN PRN Reason: Pain Stop: 03/30/21 02:58 Methylergonovine Maleate (Methylergonovine Maleate 0.2 Mg Tab) 0.2 mg PO QID [facility] Stop: 04/14/21 10:59 Last Admin: 03/15/21 21:01 Dose: 0.2 mg Documented by: Miscellaneous Information (Gentamicin Consult Active) 1 ea N/A UD PRN PRN Reason: Consult Stop: 04/14/21 18:57 Ondansetron HCl (Ondansetron Inj 2 Mg/Ml 2 Ml Vial) 4 mg IV Q4H PRN PRN Reason: Nausea And Vomiting Stop: 04/15/21 02:58 Oxycodone/Acetaminophen (Oxycodone/Acetaminophen 5mg/325mg Tab) 1 - 2 tab PO Q4H PRN PRN Reason: Pain Stop: 03/30/21 02:58 Prenat Multivit/Frio/Iron/Folic Ac ( Vitamin 1 Tab) 1 tab PO DAILY@08 [facility] Stop: 04/15/21 07:59 Sennosides (Senna 8.6 Mg Tab) 17.2 mg PO HS PRN PRN Reason: Constipation Stop: 04/14/21 09:25 Simethicone (Simethicone 80 Mg Chew) 80 mg PO DAILY@08,,, [facility] Stop: 04/14/21 12:59 Last Admin: 03/15/21 21:01 Dose: 80 mg Documented by:
--- NOTE | 2021-03-16 07:54 | Obstetrical Progress Note ---
Date of Service March 16, 2021 Assessment & Plan Admission and Anticipated Discharge Date Admission Date: March 12, 2021 Subjective Patient is seen and examined. She feels well, no complaints. No more CP/ Palpitation Pain is under control with oral meds. Ambulated without dizziness Has not Voided yet Tolerating regular diet with out N&V Flatus neg BM neg Bleeding is minimal No fever/ chills/ CP/ SOB/ N&V/ Leg pain Breast feeding without problems Vital Signs Temp Pulse Resp BP Pulse Ox 03/16/21 03:45 36.6 C 93 H 18 97/64 L 94 03/16/21 02:16 16 91 03/16/21 01:32 18 92 03/16/21 00:00 20 93 03/15/21 23:15 37.5 C 112 H 16 113/71 93 03/15/21 22:30 18 95 03/15/21 21:48 18 95 03/15/21 20:05 20 96 03/16/21 03/16/21 03/16/21 Range/Units 06:35 06:35 06:35 WBC 17.10 H (4.8-10.8) K/uL RBC 3.62 L (4.2-5.4) M/uL Hgb 10.7 L (12.0-16.0) g/dL Hct 31.4 L (37-47) % MCV 86.7 (80-100) fL MCH 29.6 (25-34) pg MCHC 34.1 (32-36) g/dL RDW Std Deviation 43.5 (36.4-46.3) fL RDW Coeff of Lolita 13.6 (11.5-14.5) % Plt Count 155 (130-400) K/uL MPV 10.5 H (7.4-10.4) fL Immature Gran % (Auto) 0.3 % Neut % (Auto) 92.6 % Lymph % (Auto) 3.7 % [place] % (Auto) 3.2 % Eos % (Auto) 0.1 % Baso % (Auto) 0.1 % Neut # (Auto) 15.84 H (1.4-6.5) K/uL Lymph # (Auto) 0.64 L (1.2-3.4) K/uL [place] # (Auto) 0.54 (0.11-0.59) K/uL Eos # (Auto) 0.02 (0-0.5) K/uL Baso # (Auto) 0.01 (0-0.2) K/uL Immature Gran # (Auto) 0.05 H (0.00-0.02) K/uL Sodium 136 (136-145) mmol/L Potassium 3.9 (3.5-5.1) mmol/L Chloride 105 (98-107) mmol/L Carbon Dioxide 24 (21-32) mmol/L Anion Gap 6.0 (3-11) BUN 8 (7-18) mg/dl Creatinine 0.80 (0.6-1.2) mg/dl Est Cr Clr Drug Dosing 111.8 ml/min Est GFR ( Amer) 116.3 ml/min Est GFR (Non-Af Amer) 100.3 ml/min BUN/Creatinine Ratio 9.8 L (10-20) Glucose 85 (70-99) mg/dl Lactate 0.9 (0.4-2.0) mmol/L Calcium 8.1 L (8.5-10.1) mg/dl Magnesium 1.5 L (1.8-2.4) mg/dl Total Bilirubin 0.6 (0.2-1) mg/dl AST 15 (15-37) U/L ALT 11 L (12-78) U/L Alkaline Phosphatase 113 (45-117) U/L Troponin I < 0.015 (0-0.045) ng/ml Total Protein 5.3 L (6.4-8.2) gm/dl Albumin 1.7 L (3.4-5.0) gm/dl Globulin 3.6 (2.5-4.0) gm/dl Albumin/Globulin Ratio 0.5 L (0.9-2) Blood Type Antibody Screen Crossmatch 03/15/21 03/15/21 03/15/21 Range/Units 20:07 20:07 18:00 WBC (4.8-10.8) K/uL RBC (4.2-5.4) M/uL Hgb (12.0-16.0) g/dL Hct (37-47) % MCV (80-100) fL MCH (25-34) pg MCHC (32-36) g/dL RDW Std Deviation (36.4-46.3) fL RDW Coeff of Lolita (11.5-14.5) % Plt Count (130-400) K/uL MPV (7.4-10.4) fL Immature Gran % (Auto) % Neut % (Auto) % Lymph % (Auto) % [place] % (Auto) % Eos % (Auto) % Baso % (Auto) % Neut # (Auto) (1.4-6.5) K/uL Lymph # (Auto) (1.2-3.4) K/uL [place] # (Auto) (0.11-0.59) K/uL Eos # (Auto) (0-0.5) K/uL Baso # (Auto) (0-0.2) K/uL Immature Gran # (Auto) (0.00-0.02) K/uL Sodium (136-145) mmol/L Potassium (3.5-5.1) mmol/L Chloride (98-107) mmol/L Carbon Dioxide (21-32) mmol/L Anion Gap (3-11) BUN (7-18) mg/dl Creatinine (0.6-1.2) mg/dl Est Cr Clr Drug Dosing ml/min Est GFR ( Amer) ml/min Est GFR (Non-Af Amer) ml/min BUN/Creatinine Ratio (10-20) Glucose (70-99) mg/dl Lactate 1.5 3.1 H* (0.4-2.0) mmol/L Calcium (8.5-10.1) mg/dl Magnesium (1.8-2.4) mg/dl Total Bilirubin (0.2-1) mg/dl AST (15-37) U/L ALT (12-78) U/L Alkaline Phosphatase (45-117) U/L Troponin I < 0.015 (0-0.045) ng/ml Total Protein (6.4-8.2) gm/dl Albumin (3.4-5.0) gm/dl Globulin (2.5-4.0) gm/dl Albumin/Globulin Ratio (0.9-2) Blood Type Antibody Screen Crossmatch 03/15/21 03/15/21 03/15/21 Range/Units 18:00 18:00 07:26 WBC 17.96 H (4.8-10.8) K/uL RBC 4.01 L (4.2-5.4) M/uL Hgb 11.5 L (12.0-16.0) g/dL Hct 34.7 L (37-47) % MCV 86.5 (80-100) fL MCH 28.7 (25-34) pg MCHC 33.1 (32-36) g/dL RDW Std Deviation 42.7 (36.4-46.3) fL RDW Coeff of Lolita 13.4 (11.5-14.5) % Plt Count 168 (130-400) K/uL MPV 10.7 H (7.4-10.4) fL Immature Gran % (Auto) 0.3 % Neut % (Auto) 95.2 % Lymph % (Auto) 2.2 % [place] % (Auto) 2.2 % Eos % (Auto) 0.0 % Baso % (Auto) 0.1 % Neut # (Auto) 17.10 H (1.4-6.5) K/uL Lymph # (Auto) 0.39 L (1.2-3.4) K/uL [place] # (Auto) 0.40 (0.11-0.59) K/uL Eos # (Auto) 0.00 (0-0.5) K/uL Baso # (Auto) 0.01 (0-0.2) K/uL Immature Gran # (Auto) 0.06 H (0.00-0.02) K/uL Sodium 137 (136-145) mmol/L Potassium 3.9 (3.5-5.1) mmol/L Chloride 108 H (98-107) mmol/L Carbon Dioxide 20 L (21-32) mmol/L Anion Gap 9.0 (3-11) BUN 9 (7-18) mg/dl Creatinine 0.88 (0.6-1.2) mg/dl Est Cr Clr Drug Dosing 101.7 ml/min Est GFR ( Amer) 103.6 ml/min Est GFR (Non-Af Amer) 89.4 ml/min BUN/Creatinine Ratio 9.8 L (10-20) Glucose 129 H (70-99) mg/dl Lactate (0.4-2.0) mmol/L Calcium 8.3 L (8.5-10.1) mg/dl Magnesium (1.8-2.4) mg/dl Total Bilirubin 0.8 (0.2-1) mg/dl AST 16 (15-37) U/L ALT 10 L (12-78) U/L Alkaline Phosphatase 129 H (45-117) U/L Troponin I (0-0.045) ng/ml Total Protein 5.4 L (6.4-8.2) gm/dl Albumin 1.8 L (3.4-5.0) gm/dl Globulin 3.6 (2.5-4.0) gm/dl Albumin/Globulin Ratio 0.5 L (0.9-2) Blood Type O Positive Antibody Screen NEGATIVE Crossmatch See Detail PE: General: Alert, orientedx3, NAD CVS: S1S2 RRR Lungs; CTAB Abd: soft, NT, ND, BS+, fundus firm, below Umbilicus Incision/ Dressing: Clean, dry, intact Perineum intact, Lochia rubra minimal Ext; NT, no edema AP: 30 yo s/p Primary C Section after prolonged IOL/ Labor, pod# 1, intraamniotic infection, s/p atypical CP yesterday VSS Afebrile doing well Appreciate Medicine input, ordered Echo cardiogram today Lactic acid normalized On 3riple IV AB Continue routine postop care Encourage ambulation, PO intake All questions were answered Results & Data ([facility]) Vital Signs (Past 12 Hours) Vital Signs Temp Pulse Resp BP Pulse Ox 03/16/21 03:45 36.6 C 93 H 18 97/64 L 94 03/16/21 02:16 16 91 03/16/21 01:32 18 92 03/16/21 00:00 20 93 03/15/21 23:15 37.5 C 112 H 16 113/71 93 03/15/21 22:30 18 95 03/15/21 21:48 18 95 03/15/21 20:05 20 96
[2021-03-16] MEDS ORDERED: MEASLES, MUMPS & RUBELLA VIRUS VIAL SQ ONE (09:00)
[2021-03-16] MEDS ORDERED: DIPHTHERIA/TETANUS/PERTUSSIS 0.5 ML SYR/VIAL IM ONE (09:00)
[2021-03-16] MEDS: METHYLERGONOVINE MALEATE 0.2 MG TAB PO SCH ×5 (10:21→20:00)
[2021-03-16] MEDS: SIMETHICONE 80 MG CHEW PO SCH ×4 (10:21→19:58)
[2021-03-16] MEDS: DOCUSATE SODIUM 100 MG CAP PO SCH ×2 (10:21→20:01)
[2021-03-16] MEDS: FERROUS SULFATE 325 MG TAB PO SCH (10:21)
[2021-03-16] MEDS: PRENATAL VITAMIN 1 TAB PO SCH (10:21)
[2021-03-16] MEDS: IBUPROFEN 600 MG TAB PO PRN ×3 (10:48→19:59)
[2021-03-16] MEDS: oxyCODONE/ACETAMINOPHEN 5mg/325mg TAB PO PRN ×3 (10:49→19:59)
[2021-03-16] MEDS: MAGNESIUM OXIDE 400 MG TAB PO SCH ×2 (10:51→20:00)
--- NOTE | 2021-03-16 11:07 | Electrocardiogram Report ---
Test Reason : Blood Pressure : / mmHG Vent. Rate : 114 BPM Atrial Rate : 114 BPM P-R Int : 156 ms QRS Dur : 082 ms QT Int : 314 ms P-R-T Axes : 038 055 -14 degrees QTc Int : 432 ms Sinus tachycardia Nonspecific T wave abnormality Abnormal ECG No previous ECGs available Confirmed by Roman Burt [id number]) on 03/16/2021 11:07:30 AM Referred By: Felix Patel Confirmed By:Ari Burt
[2021-03-16] MEDS: GENTAMICIN SULFATE 440 MG in DEXTROSE 5% 100 ML IV SCH (19:55)
[2021-03-16] MEDS ORDERED: bisacodyL 5 MG TABEC PO SCH (20:00)
[2021-03-17] MEDS: oxyCODONE/ACETAMINOPHEN 5mg/325mg TAB PO PRN ×3 (00:34→10:26)
[2021-03-17] MEDS: IBUPROFEN 600 MG TAB PO PRN ×3 (00:34→10:26)
[2021-03-17] MEDS: ceFAZolin 2000MG 2,000 MG/15 ML SYR IV SCH ×2 (00:38→10:43)
[2021-03-17] MEDS: CLINDAMYCIN 900 MG in DEXTROSE 5% 50 ML IV SCH (02:50)
[2021-03-17 06:28] LABS: Basophils # (auto) 0.01 K/uL (0-0.2); Basophils % (auto) 0.1 %; Eosinophils # (auto) 0.08 K/uL (0-0.5); Eosinophils % (auto) 0.5 %; Hematocrit (blood only) 30.5 % (37-47); Immature Granulocytes # (auto) 0.05 K/uL (0.00-0.02); Immature Granulocytes % (auto) 0.3 %; Lymphocytes # (auto) 0.68 K/uL (1.2-3.4); Lymphocytes % (auto) 4.6 %; Mean Corpuscular Hemoglobin 28.5 pg (25-34); Mean Corpuscular Hgb Conc 32.8 g/dL (32-36); Mean Corpuscular Volume 86.9 fL (80-100); Mean Platelet Volume 10.3 fL (7.4-10.4); Monocytes # (auto) 0.48 K/uL (0.11-0.59); Monocytes % (auto) 3.2 %; Neutrophils # (auto) 13.63 K/uL (1.4-6.5); Neutrophils % (auto) 91.3 %; Platelet Count 159 K/uL (130-400); RDW Coefficient of Variation 13.8 % (11.5-14.5); RDW Standard Deviation 44.2 fL (36.4-46.3); Red Blood Count 3.51 M/uL (4.2-5.4); White Blood Count 14.93 K/uL (4.8-10.8)
[2021-03-17 07:04] LABS: BUN Creatinine Ratio 13.4 (10-20); Calcium 8.4 mg/dl (8.5-10.1); Creatinine Clr Calc Pharmacy 107.8 ml/min; Est GFR (African American) 111.2 ml/min; Magnesium 1.9 mg/dl (1.8-2.4); Potassium 3.8 mmol/L (3.5-5.1)
[2021-03-17 07:05] LABS: Phosphorus 3.2 mg/dl (2.5-4.9)
--- NOTE | 2021-03-17 07:47 | Hospitalist Progress Note ---
Date of Service March 17, 2021 Assessment & Plan (1) Chest pain: Plan: This is a 30-year-old female who is status post , presents w/ some chest discomfort, palpitations and tachycardia. Found to have elevated lactic acid, and there is concern per [employer] of amniotic fluid infection. 1. Chest discomfort. tachycardia. Currently patient denies any chest pain, shortness of breath, palpitations. She is hemodynamically stable Troponin x2 negative Echocardiogram obtained and unremarkable - shows mild concentric LVH. No regional wall motion abnormality. LV systolic function is normal. LVEF 60 to 65%. RV is normal in size and function. There is no significant valvular pathology. If anything concerning then we will do a CT of the chest to rule out any pulmonary embolism. For now we will closely monitor. Continues to do well, denies any chest pain shortness of breath palpitations, she is ambulating without difficulty 2. Hypomagnesemia Magnesium 1.5, goal above 2 Started mag oxide p.o. supplement Current Mg normal 3. Possible infection (concern for allergic fluid infection, per [employer]), with elevated lactic acid that is improved with fluids. WBC elevated Started on antibiotics, Keflex, clindamycin and gentamicin. We will follow the cultures.Closely monitor. added probiotics 3. Constipation, sluggish bowel sounds. Now no abd. pain, pt having BMs, no complaints DVT prophylaxis. Per [facility] DISPOSITION: As per [employer]. Admission and Anticipated Discharge Date Admission Date: March 12, 2021 Subjective Patient seen in follow-up of chest pain Currently sitting up in bed, in no acute distress, comfortable Denies any more chest pain, shortness of breath, palpitations She is conversing easily Pt denies any significant abdominal pain, says she is tolerating diet, having BM and child at the bedside Review of Systems Review of Systems: All systems reviewed & are unremarkable except as noted in Subjective Physical Exam Physical Exam: GENERAL:Well-developed, well-nourished young F in NAD HEENT: NC/AT, EOMI, PERRL NECK: No JVD. No neck masses seen. CARDIOVASCULAR: S1 and S2 heard, regular rate and rhythm. No murmur, no gallop. RESPIRATORY: Normal AP diameter. No accessory muscle use.CTAB. No wheezing, no crackles. ABDOMEN: Soft, mild distention. Sluggish bowel sounds, some tenderness in the surgical site. Clean surg. dressings. NEURO:Alert oriented, answering questions appropriately, no facial asymmetry, moves extremities EXTREMITIES: Mild pedal edema, no erythema seen. Results & Data Results & Data ([facility]) Vital Signs (Past 12 Hours) Vital Signs Temp Pulse Resp BP Pulse Ox 03/17/21 03:50 36.4 C L 82 16 105/69 93 03/17/21 00:10 36.4 C L 74 16 100/66 94 Laboratory Results 03/17/21 03/17/21 03/16/21 Range/Units 06:11 06:11 06:35 WBC 14.93 H (4.8-10.8) K/uL RBC 3.51 L (4.2-5.4) M/uL Hgb 10.0 L (12.0-16.0) g/dL Hct 30.5 L (37-47) % MCV 86.9 (80-100) fL MCH 28.5 (25-34) pg MCHC 32.8 (32-36) g/dL RDW Std Deviation 44.2 (36.4-46.3) fL RDW Coeff of Lolita 13.8 (11.5-14.5) % Plt Count 159 (130-400) K/uL MPV 10.3 (7.4-10.4) fL Immature Gran % (Auto) 0.3 % Neut % (Auto) 91.3 % Lymph % (Auto) 4.6 % Slope % (Auto) 3.2 % Eos % (Auto) 0.5 % Baso % (Auto) 0.1 % Neut # (Auto) 13.63 H (1.4-6.5) K/uL Lymph # (Auto) 0.68 L (1.2-3.4) K/uL Slope # (Auto) 0.48 (0.11-0.59) K/uL Eos # (Auto) 0.08 (0-0.5) K/uL Baso # (Auto) 0.01 (0-0.2) K/uL Immature Gran # (Auto) 0.05 H (0.00-0.02) K/uL Sodium 138 (136-145) mmol/L Potassium 3.8 (3.5-5.1) mmol/L Chloride 107 (98-107) mmol/L Carbon Dioxide 26 (21-32) mmol/L Anion Gap 5.0 (3-11) BUN 11 (7-18) mg/dl Creatinine 0.83 (0.6-1.2) mg/dl Est Cr Clr Drug Dosing 107.8 ml/min Est GFR ( Amer) 111.2 ml/min Est GFR (Non-Af Amer) 96.0 ml/min BUN/Creatinine Ratio 13.4 (10-20) Glucose 92 (70-99) mg/dl Calcium 8.4 L (8.5-10.1) mg/dl Phosphorus 3.2 3.1 (2.5-4.9) mg/dl Magnesium 1.9 (1.8-2.4) mg/dl Crossmatch 03/15/21 Range/Units 07:26 WBC (4.8-10.8) K/uL RBC (4.2-5.4) M/uL Hgb (12.0-16.0) g/dL Hct (37-47) % MCV (80-100) fL MCH (25-34) pg MCHC (32-36) g/dL RDW Std Deviation (36.4-46.3) fL RDW Coeff of Lolita (11.5-14.5) % Plt Count (130-400) K/uL MPV (7.4-10.4) fL Immature Gran % (Auto) % Neut % (Auto) % Lymph % (Auto) % Slope % (Auto) % Eos % (Auto) % Baso % (Auto) % Neut # (Auto) (1.4-6.5) K/uL Lymph # (Auto) (1.2-3.4) K/uL Slope # (Auto) (0.11-0.59) K/uL Eos # (Auto) (0-0.5) K/uL Baso # (Auto) (0-0.2) K/uL Immature Gran # (Auto) (0.00-0.02) K/uL Sodium (136-145) mmol/L Potassium (3.5-5.1) mmol/L Chloride (98-107) mmol/L Carbon Dioxide (21-32) mmol/L Anion Gap (3-11) BUN (7-18) mg/dl Creatinine (0.6-1.2) mg/dl Est Cr Clr Drug Dosing ml/min Est GFR ( Amer) ml/min Est GFR (Non-Af Amer) ml/min BUN/Creatinine Ratio (10-20) Glucose (70-99) mg/dl Calcium (8.5-10.1) mg/dl Phosphorus (2.5-4.9) mg/dl Magnesium (1.8-2.4) mg/dl Crossmatch See Detail Medications Administered Current Inpatient Medications Acetaminophen (Acetaminophen 325 Mg Tab) 650 mg PO Q4H PRN PRN Reason: pain Stop: 04/12/21 09:09 Last Admin: 03/15/21 05:31 Dose: 650 mg Documented by: Benzocaine (Benzocaine 20% Aer Spr 82.5 Gm Can) 1 appln EXT UD PRN PRN Reason: use on skin as needed Stop: 04/14/21 09:25 Bisacodyl (Bisacodyl 10 Mg Supp) 10 mg MO PRN PRN PRN Reason: Constipation Stop: 04/16/21 09:26 Butorphanol Tartrate (Butorphanol Tartrate 1 Mg/Ml Vial) 1 mg IV Q3HWA PRN PRN Reason: Pain Stop: 04/12/21 09:08 Last Admin: 03/14/21 00:05 Dose: 1 mg Documented by: Cocaine HCl (Supercream 0.870% 15 Gm Jar) 1 gm EXT UD PRN PRN Reason: hemmorrhoidal inflammation Stop: 03/29/21 09:25 Diphenhydramine HCl (Diphenhydramine Capsule 25 Mg Cap) 25 mg PO QID PRN PRN Reason: Itching Stop: 04/15/21 02:58 Diphenhydramine HCl (Diphenhydramine 50 Mg/Ml Vial) 25 mg IV QID PRN PRN Reason: Itching Stop: 04/15/21 02:58 Docusate Sodium (Docusate Sodium 100 Mg Cap) 100 mg PO DAILY@, [facility] Stop: 04/14/21 20:59 Last Admin: 03/16/21 20:01 Dose: Not Given Documented by: Ferrous Sulfate (Ferrous Sulfate 325 Mg Tab) 325 mg PO DAILY@ [facility] Stop: 04/15/21 07:59 Last Admin: 03/16/21 10:21 Dose: 325 mg Documented by: Hydrocortisone (Hydrocortisone Acetate 25 Mg Supp) 25 mg MO BID PRN PRN Reason: Hemorrhoids Stop: 04/14/21 09:25 Oxytocin (Pitocin) 30 units in 500 mls @ 333.333 mls/hr IV .Q1H30M PRN; Protocol PRN Reason: Bleeding Control Stop: 04/11/21 09:33 Promethazine HCl 25 mg/ Sodium (Chloride) 51 mls @ 204 mls/hr IV Q4H PRN PRN Reason: Nausea And Vomiting Stop: 04/15/21 02:58 Cefazolin Sodium (Ancef 2000mg) 2,000 mg in 15 mls @ 3.75 mls/min IV Q8H [facility] Stop: 03/17/21 17:29 Last Admin: 03/17/21 00:38 Dose: 3.75 mls/min Documented by: Clindamycin Phosphate 900 mg/ (Dextrose) 56 mls @ 112 mls/hr IV Q8H [facility] Stop: 03/17/21 09:59 Last Admin: 03/17/21 02:50 Dose: 112 mls/hr Documented by: Gentamicin Sulfate 440 mg/ (Dextrose) 111 mls @ 100 mls/hr IV Q24H [facility]; Protocol Stop: 03/25/21 19:59 Last Infusion: 03/16/21 21:10 Dose: Infused Documented by: Sodium Chloride (Nss 1000ml) 1,000 mls @ 125 mls/hr IV .Q8H [facility] Stop: 04/14/21 19:59 Ibuprofen (Ibuprofen 600 Mg Tab) 600 mg PO Q4H PRN PRN Reason: Pain Stop: 04/14/21 09:25 Last Admin: 03/17/21 04:34 Dose: 600 mg Documented by: Ketorolac Tromethamine (Ketorolac 30 Mg/Ml Vial) 30 mg IV Q6H PRN PRN Reason: Pain Stop: 03/21/21 02:58 Lactobacillus Acidoph/Casei/Rhamnos (Advanced Probiotic 1250 Mg Capsule) 2 cap PO DAILY [facility] Stop: 04/16/21 08:59 Magnesium Hydroxide (Magnesium Hydroxide Susp 30 Ml Udc) 30 ml PO HS PRN PRN Reason: Constipation Stop: 04/14/21 09:25 Magnesium Oxide (Magnesium Oxide 400 Mg Tab) 400 mg PO BID [facility] Stop: 04/15/21 08:59 Last Admin: 03/16/21 20:00 Dose: 400 mg Documented by: Meperidine HCl (Meperidine Hcl 50 Mg/Ml Carp) 50 - 75 mg IV Q4H PRN PRN Reason: Pain Stop: 03/30/21 02:58 Methylergonovine Maleate (Methylergonovine Maleate 0.2 Mg Tab) 0.2 mg PO QID [facility] Stop: 04/14/21 10:59 Last Admin: 03/16/21 20:00 Dose: 0.2 mg Documented by: Miscellaneous Information (Gentamicin Consult Active) 1 ea N/A UD PRN PRN Reason: Consult Stop: 04/14/21 18:57 Ondansetron HCl (Ondansetron Inj 2 Mg/Ml 2 Ml Vial) 4 mg IV Q4H PRN PRN Reason: Nausea And Vomiting Stop: 04/15/21 02:58 Oxycodone/Acetaminophen (Oxycodone/Acetaminophen 5mg/325mg Tab) 1 - 2 tab PO Q4H PRN PRN Reason: Pain Stop: 03/30/21 02:58 Last Admin: 03/17/21 04:34 Dose: 1 tab Documented by: Prenat Multivit/[place]/Iron/Folic Ac ( Vitamin 1 Tab) 1 tab PO DAILY@08 [facility] Stop: 04/15/21 07:59 Last Admin: 03/16/21 10:21 Dose: 1 tab Documented by: Sennosides (Senna 8.6 Mg Tab) 17.2 mg PO HS PRN PRN Reason: Constipation Stop: 04/14/21 09:25 Simethicone (Simethicone 80 Mg Chew) 80 mg PO DAILY@08,,, [facility] Stop: 04/14/21 12:59 Last Admin: 03/16/21 19:58 Dose: 80 mg Documented by:
[2021-03-17] MEDS: DOCUSATE SODIUM 100 MG CAP PO SCH (07:55)
[2021-03-17] MEDS: FERROUS SULFATE 325 MG TAB PO SCH (07:55)
[2021-03-17] MEDS: SIMETHICONE 80 MG CHEW PO SCH ×2 (07:56→12:40)
[2021-03-17] MEDS: PRENATAL VITAMIN 1 TAB PO SCH (07:56)
[2021-03-17] MEDS: MAGNESIUM OXIDE 400 MG TAB PO SCH (07:57)
[2021-03-17] MEDS: METHYLERGONOVINE MALEATE 0.2 MG TAB PO SCH (07:57)
[2021-03-17] MEDS ORDERED: ADVANCED PROBIOTIC 1250 MG CAPSULE PO SCH (09:00)
--- NOTE | 2021-03-17 09:23 | Obstetrical Progress Note ---
Date of Service March 17, 2021 Assessment & Plan (1) delivery delivered: POD #2 pt doing well wishes to be discharged home Subjective Ambulation: ambulating normally Voiding: no voiding problems Passing Gas:: Yes Diet Tolerance:: clear liquids Lochia:: Small Feeding Type:: breast feeding Review of Systems All systems reviewed & are unremarkable except as noted in HPI & below Physical Exam Constitutional WD/WN, vitals as above well developed and well nourished Eyes PERRL, conjunctivae normal, anicteric sclerae ENMT external ear and nose normal, oropharynx normal Neck trachea midline, no thyromegaly Respiratory normal respiratory effort, lungs clear to auscultation Cardiovascular RRR, no murmur, no edema Chest (Breasts) normal inspection/palpation of breasts Gastrointestinal (Abdomen) normal bowel sounds, soft, nontender, no hepatosplenomegaly Musculoskeletal no cyanosis or clubbing, extremities motor strength 5/5 Skin no rashes, warm and dry + incision (Clean,dry and intact) Neurologic patellar DTR's 2+ bilat, sensation intact Psychiatric A+Ox3, euthymic affect Genitourinary normal external appearance Lymphatic no cervical or axillary lymphadenopathy Results & Data ([facility]) Vital Signs (Past 12 Hours) Vital Signs Temp Pulse Resp BP Pulse Ox 03/17/21 03:50 36.4 C L 82 16 105/69 93 03/17/21 00:10 36.4 C L 74 16 100/66 94
[2021-03-17] MEDS ORDERED: bisacodyL 10 MG SUPP PR PRN (09:27)
--- NOTE | 2021-03-27 21:03 | Discharge Summary (DS) ---
DATE OF ADMISSION: 03/12/2021 DATE OF DISCHARGE: 03/17/2021. DETAILS OF ADMISSION: The patient is a 30-year-old G1, P0 at 40 weeks and 5 days of gestation, who was admitted on 03/12/2021 for induction of labor for postdates. Her cervix was unfavorable and she received Cytotec on admission and Cervidil overnight. On hospital day #2, 03/13/2021, her cervix was still unfavorable, 1 cm dilated, 40% effaced, -3 station, posterior. Kauffman 3. She has received another dose of Cervidil. On the evening of 03/13/2021, her cervix was still not favorable. Then, I placed a Valencia bulb for mechanical dilatation with low-dose Pitocin overnight. On hospital day #3, the patient was seen by Dr. Flores. Her cervix was 2 cm dilated, 60% effaced, station was high. She was AROM'ed, and clear fluid was obtained. heart rate was category 1. She was then placed on oxytocin, continued with induction and in the evening of 03/14/2021, her cervix was 5 cm dilated, 80% effaced, and -2 station. She was continued with induction of labor until morning of 03/15/2021 when I came back, Her last exam per her nurse was 5 cm, 80%, -2 and then when I checked her cervix was still the same, it was 4 cm for me, 60% effaced, swollen, head was at -2 station. heart rate was category 2 with tachycardia. I recommended primary section for arrest of dilatation and category 2 strip, remote from delivery and chorioamnionitis. So we went to OR and performed a primary low transverse with Pfannenstiel incision, delivered a viable female at 8:44 a.m. Apgars were 8 and 9 and the uterus was meconium stained and findings of chorioamnionitis were seen. Her surgery was uncomplicated. See dictated op note for details. The patient was then placed on IV antibiotics for chorioamnionitis. In the afternoon on postop day #0, the patient's heart rate was tachycardic and she was feeling chest discomfort. Her oxygen saturations were normal. We called the hospitalist and they performed, EKGs and blood work. EKG showed sinus tachycardia. Blood work was normal except elevated lactate levels. We continued with antibiotics and a lactate levels game down. Replace magnesium and potassium. Next day in the morning, the patient was doing well, vital signs stable, afebrile, normal tachycardia. Urine output was adequate and continued with IV antibiotics for 48 hours. On 03/17/2021, she was seen again with hospitalist. Her echocardiogram was unremarkable. She was discharged on 03/17/2021 with prescriptions for pain. Discharge instructions were given. Prescriptions were written. She is to be seen in the office in a week. All questions were answered. Job ID: [id number] [facility]
== END 2021-03-17 13:10 | disposition home or self-care (01) | DRG 786 ==
LOC: 4S1 07:10 → 4S2 03-15 13:29